=== PATIENT | female | born 2000 | race Caucasian/White ===

== ENCOUNTER 2024-02-21 12:42 | Observation (INO) | payer BC, SELFPAY ==
[2024-02-21 13:00] VITALS: BMI 26.6
[2024-02-21 15:13] LABS: Add Urine Microscopic? YES; Appearance Urine Clear (Clear); Bacteria Urine None Seen /hpf; Bilirubin Urine Negative (Negative); Blood Urine 3+ (Negative); Color Urine Yellow (Yellow); Glucose Urine UA Negative (Negative); Ketones Urine Negative (Negative); Leukocyte Esterase Ur Negative LEU/UL (Negative); Nitrate Urine Negative (Negative); Non Pathogenic Casts 0-2; Protein Urine Negative (Negative); RBC Urine 21-50 /hpf (0-2); Specific Grav Ur 1.011 (1.001-1.035); Squamous Epithelial Cell Urine None Seen /hpf (Few); Urobilinogen Urine 0.2 mg/dL (<2.0); WBC Urine 0-5 /hpf (0-3); pH Urine 6.5 (5.0-9.0)
[2024-02-21 18:53] LABS: OBXCEM ROM Plus Negative (Negative)
--- NOTE | 2024-02-22 18:09 | P.PNOB_ITS ---
OB - Triage/Final Diagnosis Visit Information Date of evaluation: 02/21/24 Reason for evaluation: threatened labor Comments/Additional reasons for admission: I have assessed the risk for this patient, Jazmni Mills, and determined that she would benefit from observation care. Evaluation Laboratory results: Laboratory Tests 02/21/24 02/21/24 13:30 14:49 Urine Color Yellow Urine Appearance Clear Urine pH 6.5 Ur Specific [place] 1.011 Urine Protein Negative Urine Glucose (UA) Negative Urine Ketones Negative Ur Blood (Man) 3+ H Urine Nitrate Negative Urine Bilirubin Negative Urine Urobilinogen 0.2 Ur Leukocyte Esterase Negative Urine RBC 21-50 H Urine WBC 0-5 Ur Squamous Epith Cells None seen Urine Bacteria None seen Urine Casts 0-2 Membranes Rupture Rom plus negative
== END 2024-02-21 15:48 | disposition home or self-care (01) ==
PROVIDERS: Advanced Practice Midwife; Admitting Provider Obstetrics & Gynecology; Visit Provider Obstetrics & Gynecology
DX: O47.03 False labor before 37 completed weeks of gestation, third trimester (principal); Z3A.33 33 weeks gestation of pregnancy
CPT/HCPCS: 81001; 84112; 87086; G0378; G0379

== ENCOUNTER 2024-03-22 16:00 | Outpatient (RCR) | payer BC, SELFPAY ==
--- NOTE | ~2024-03-22 | US_ITS ---
EXAMINATION: US OB BPP wo non-stress DATE: 03/22/2024 18:11 TERRAZZO FINISHER INDICATION: Variable decelerations TECHNIQUE: Real-time transabdominal obstetric ultrasound. FINDINGS: 1 para 0 There is a single intrauterine gestation in vertex presentation. The placenta is posterior without p lacenta previa. cardiac activity and movement is noted with a heart rate of 122 beats per minute. Biophysical profile: breathin of 2 movement: 2 of 2 tone: 2 of 2 Amniotic fluid pocket: 2 of 2 Total score: 8 of 8 Deepest vertical pocket measures 2.5 cm IMPRESSION: 1. Single intrauterine gestation in vertex presentation. 2: Total biophysical profile score of 8 out of 8. Reviewed, dictated and finalized at location A. AZZO FINISHER
[2024-03-22 18:04] VITALS: BP 117/68; PULSE 85
== END 2024-05-29 17:19 | disposition home or self-care (01) ==
LOC: ANHOBOP 16:00
PROVIDERS: PCP Family Medicine; Visit Provider Advanced Practice Midwife
DX: O36.8310 Maternal care for abnormalities of the fetal heart rate or rhythm, first trimester, not applicable or unspecified (principal)
CPT/HCPCS: 59025; 76819

== ENCOUNTER 2024-04-08 04:56 | Inpatient (IN) | payer BC, SELFPAY ==
[2024-04-08] VITALS (208 sets, daily range): BP systolic 92–150; BP diastolic 45–106; PULSE 55–199; TEMP 36.1–36.6; O2SAT 81–100; BMI 27.3
--- OUTSIDE RECORDS SUMMARY | 2024-04-08 05:01 | XMS_ITS | Encounter Summary ---
Author Organization [facility] Address [facility] [place] [address] Care Team Providers Care Windows Laptop Technician Name Role Phone Suraj Chirinos MD Primary Care Provider + [phone] Suraj Chirinos MD Primary Care Provider + [phone] Suraj Chirinos MD Unavailable [phone] Encounter Details Date Type Department Care Team (Late st Contact Info) Description 12/10/2016 [place] [address] , Generic Conversion, Social History Tobacco Use Types Packs/Day Years Used Date Smoking Tobacco: Never Assessed Comments Unknown Sex and Gender Information Value Date Recorded Sex Assigned at Not on file Legal Sex Female 7:43 PM CDT Gender Identity Not on file Sexual Orientation Not on file documented as of this encounter Plan of Treatment Not on file documented as of this encounter Visit Diagnoses Not on filedocumented in this encounter Care Teams Windows Laptop Technician Relationship Specialty Start Date End Date Suraj Chirinos MD [address] [place] [address] PCP - General 09/12/14 04/05/18 Suraj Chirinos MD [address] [facility] [address] [place] [address] PCP - General FAMILY PRACTICE 04/06/18 Suraj Chirinos MD [address] [facility] [address] [place] [address] 04/06/18 documented as of this encounter
--- OUTSIDE RECORDS SUMMARY | 2024-04-08 05:01 | XMS_ITS | Referral Summary ---
Author Organization [facility] Address [address] [place] [address] Care Team Providers Care Fabric Awning Repairer Name Role Phone Suraj Chirinos MD Primary Care Provider [phone] Link Nunez DO Unavailable [phone] Allergies Active Allergy Reactions Criticality Noted Date Comments Apple Shortness of breath High 01/22/2018 Apple Extract Swelling Medium 12/09/2016 Medications norethindrone-et hin estradiol (ORTHO-NOVUM 1-35 TAB,NORTREL 1-35 TAB) 1-35 mg-mcg per tablet Take 1 tablet by mouth daily. Active ibuprofen (ADVIL,MOTRIN) 400 mg tablet Take 1 tablet (400 mg total) by mouth every 6 (six) hours as needed for pain or fever. 40 tablet 8 Active diphenhydrAMINE (BENADRYL) 12.5 mg chewable tablet Take 12.5 mg by mouth every 6 (six) hours as needed for allergies. Active inhaler,assist devices,access (MOUTHPIECE) device Active valACYclovir (VALTREX) 1 gram tablet Take 2 grams twice a day when you feel tingling or burning sensation and are concerned for herpes infection 32 tablet 9 Active hydrocortisone 2.5 % ointmentIndicati ons:Atopic dermatitis, unspecified type Apply to less severe areas of eczema up to twice a day, avoid face, groin 453.6 g 2 9 Active Active Problems Problem Noted Date Diagnosed Date Ecchymosis 02/10/2022 Acute viral conjunctivitis of both eyes 01/27/20 18 Assessment & Plan (02/09/2018 10:33 AM PLATEN PRESS OPERATOR APPRENTICE): Resolved Assessment & Plan (01/26/2018 12:24 PM PLATEN PRESS OPERATOR APPRENTICE): Assessment: Patient presented with conjunctivitis and 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 No corneal or retinal involvement per optho and conjunctivitis resolving with pain 2/10 in bilateral eyes. Plan: -Artificial tears PRN eye discomfort -Ophthalmology follow up 02/09/[address] Swann Other constipation 01/25/2018 Assessment & Plan (01/26/2018 12:29 PM PLATEN PRESS OPERATOR APPRENTICE): Assessment: History of constipation that worsened during inpatient stay with additional use of pain medications. Abdomen soft and nontender still with complaints of hard stools Plan: -Discharge home with Miralax daily as needed Assessment & Plan (01/25/2018 9:58 PM PLATEN PRESS OPERATOR APPRENTICE): No stool since 01/20 and worsened by narcotics given in hospital Plan: Continue Miralax BID Can give Senna if needed for stooling in addition to Miralax Acute pain 01/24/2018 Assessment & Plan (01/26/2018 1:16 PM PLATEN PRESS OPERATOR APPRENTICE): Assessment: Patient experiencing acute pain with episode of eczema herpeticuma. Over the last 24 hours pain has been well managed with rash resolving. She reports 4/10 pain this morning but was able to sleep well throughout the night with increased dose of gabapentin. Plan: - Ibuprofen PRN - Scheduled gabapentin 300 mg morning and afternoon with 600 mg in the evening (will give wean for home on discharge to include: 2 weeks of 300mg BID with 600mg nightly, then 3 days of 300mg TID, then 3 days of 300mg BID, then 3 days of 300mg daily until finished) Assessment & Plan (01/25/2018 9:56 PM PLATEN PRESS OPERATOR APPRENTICE): Over the last 24 hours pain has not been well managed. She continues to report 6/10 pain this morning and difficulty sleeping due to the pain. Pain is described as burning. Oxycodone not helpful. Plan: - Scheduled ibuprofen 600 mg Q8 hours - Scheduled gabapentin 300 mg morning and afternoon - Increase scheduled gabapentin to 600 mg at bedtime - Discontinue oxycodone - Artificial tears PRN eye discomfort Assessment & Plan (01/24/2018 11:39 AM PLATEN PRESS OPERATOR APPRENTICE): Assessment: 17 yo female with eczema herpeticum to face and chest. On presentation, she reported 8/10 pain. Over the last 24 hours pain has gradually improved and on exam this morning she reports 4/10 pain. Plan: - Scheduled ibuprofen 600 mg Q8 hours - Scheduled gabapentin 300 mg TID - Oxycodone 5 mg Q4H PRN - Morphine PRN if oxy not sufficient - Artificial tears PRN eye discomfort - Miralax BID Eczema herpeticum 01/23/2018 Assessment & Plan (02/09/2018 10:34 AM PLATEN PRESS OPERATOR APPRENTICE): F/u with ophthalmology for routine refraction locally with contact lens provider. F/u here PRN. Continue Valtrex per MD team Assessment & Plan (01/26/2018 1:15 PM PLATEN PRESS OPERATOR APPRENTICE): Assessment: Matt is a 17-year-old female with a history of eczema who presents with eczema herpeticum to face and chest. No new lesions noted and overall improving. Facial lesion cultures 01/23 + strep dysgalactiae and + MSSA however no clinical signs of bacterial crusting. Will discharge home with topical antibiotic and reviewed signs and symptoms of worsening infection with mother and patient. Plan: -Discharge home today -PO valacyclovir 1000g (to be continued until 02/01) to complete treatment course -PO valacyclovir 500mg BID x30 days for suppression dosing (02/02-03/04) -Discussed stopping triamcinolone at discharge and using only during acute attacks -Hydrocortisone 2.5% for routine therapy -Vaseline TID to face and Mupirocin TID to eroded areas, as tolerated -Derm follow up in 30 days Assessment & Plan (01/25/2018 9:59 PM PLATEN PRESS OPERATOR APPRENTICE): Matt is a 17-year-old female with a history of eczema who presents with eczema herpeticum to face and chest. Rash is erythematous with lesions in various stages of resolution. No new lesions noted and overall improving. Plan: -SL PIV -IV Acylovir (01/23-01/25), start PO valacyclovir 1000g (to be continued until 02/01) -Triamcinolone BID to neck and arms -Vaseline TID to face -Mupirocin TID to eroded areas, as tolerated -reg diet -derm following and recommending therapies -following skin cultures pending Assessment & Plan (01/24/2018 11:40 AM PLATEN PRESS OPERATOR APPRENTICE): Assessment: Matt is a 17-year-old female with a history of eczema who presents with a rash to the face and chest. Rash is erythematous with lesions in various stages of resolution causing burning to her face and eyes. No new lesions noted. HSV culture from 01/23 was positive. Clindamycin was discontinued but will continue to follow bacterial culture. Optho consulted yesterday and is not concerned for corneal involvement. Plan: -MIVF -IV Acylovir (01/22- -Triamcinolone BID to neck and arms -Vaseline TID to face -reg diet -derm following, appreciate recommendations for IV therapy and total length of course [ ] ID consult regarding infection control as patient lives with 2 week old nephew [ ] f/u skin cultures Assessment & Plan (01/23/2018 2:15 AM PLATEN PRESS OPERATOR APPRENTICE): Matt is a 17-year-old female with a history of eczema who presents with a rash to the face. Rash is erythematous with pustules causing burning to her face and eyes. DDX Impetigo, eczema herpeticum, less likely shingles as it is not dermatomal. She was given a dose of IV acylovir, IV clindamycin, dose of oral gabapentin. Due to the pain and burning; she was given a dose of morphine and oxycodone. She was will be transferred to the floor for IV antibiotics and pain control. Plan: -IV Acylovir (01/22- -IV Clindamyicn (01/22- -reg diet -derm consult 01/23 -tylenol/ibuprofen prn -oxycodone prn Sacroiliac joint pain 02/09/2017 Atopic dermatitis 11/22/2013 Comments Yes Immunizations Immunization Administration Dates Next Due DTaP 09/12/2006, 2,06/06/2001,04/04/2001 ,02/01/2001 HPV, Quadrivalent 08/16/2013,11/07/2012,08/24/19 13 Hep B / HiB 06/06/2001 Hep B, Adolescent or Pediatric 01/02/2001,2000 HiB 12/12/2001,04/04/2001 Hib (PRP-T) 02/01/2001 IPV 09/12/2006,06/06/2001,04/04/2001 ,02/01/2001 MMR 09/12/2006,12/12/2001 Meningococcal Conjugate (Menveo) 08/16/2013 Pneumococcal Conjugate PCV 13 06/01/2001, 001 Tdap 08/23/2012 Varicella 08/23/2012,08/30/2002 Social History Tobacco Use Types Packs/Day Years Used Date Smoking Tobacco: Passive Smo ke Exposure - Never Smoker Smokeless Tobacco: Never Alcohol Use Standard Drinks/Week Comments Never 0 (1 standard drink = 0.6 oz pur e alcohol) AUDIT-C Answer Date Recorded Frequency of Alcohol Consumption Never 12/20/2018 Average Number of Drinks Not on file 019 Frequency of Binge Drinking Not on file 12/07 Comments Yes Sex and Gender Information Value Date Recorded Sex Assigned at Not on file Legal Sex Female 12:33 PM PLATEN PRESS OPERATOR APPRENTICE Gender Identity Not on file Sexual Orientation Not on file Last Filed Vital Signs Vital Sign Reading Time Taken Comments Blood Pressure 121/80 07/31/2023 4:39 PM CDT Pulse 76 07/31/2023 4:39 PM CDT Temperature 37.3 C (99.1 F) 07/31/2023 11:03 AM CDT Respiratory Rate 16 07/31/2023 4:39 PM CDT Oxygen Saturation 100% 07/31/2023 4:39 PM CDT Inhaled Oxygen Concentration - - Weight 59.2 kg (130 lb 8.2 oz) 07/31/2023 11:03 AM CDT Height 157.5 cm (5' 2 ) 07/31/2023 11:03 AM CDT Body Mass Index 23.87 07/31/2023 11:03 AM CDT Plan of Treatment Not on file Insurance [employer] [facility] [employer] [facility] Advance Directives For more information, please contact: [phone] * Full Code (Latest Code Status on File) Date Activated Date Inactivated Comments 01/23/2018 3:47 AM 01/26/2018 4:48 PM Care Teams Fabric Awning Repairer Relationship Specialty Start Date End Date Suraj Chirinos MD [address] [facility] [address] [place] [address] PCP - General 08/01/17 Link Nunez DO [address] [place] [address] MEDICAL ONCOLOGY, [facility] [address] [place] [address] Medical Oncologist/Armature Winder Repairer Hematology and Oncology 02/10/22
--- OUTSIDE RECORDS SUMMARY | 2024-04-08 05:01 | XMS_ITS | Continuity of Care Document ---
Author Name [facility] Organization [facility] Care Team Providers Care School Psychological Examiner Name Role Phone [facility] Unavailable Unavailable Allergies, Adverse Reactions, Alerts Combined list of allergies from Department of Defense and Veterans Affairs facilities. It does not include entries that were removed or entered in error. Substance Category Reaction Severity Reaction type Status Date Reported Comments Source No Known Allergies Drug allergy (disorder) active 04/01/2020 Medical Group Immunizations Combined list of available immunizations from the Department of Defense and Veterans Affairs facilities. Immunization Series Date Given Administered By Site Reaction Lot Number CVX Code Drug Supervisor Tan Room Status Comments Source COVID Vaccine Pfizer 2020 [id number] PFIZER complet ed COVID Vaccine Pfizer 09/11/20 Given Ambulat ory Pharmac y hepatitis A-hepatitis B vaccine 2020 [id number] GlaxoSmithKli ne complet ed hepatitis A-hepatit is B vaccine 04/27/20 Given Ambulat ory Pharmac y influenza, injectable, quadrivalent 2020 [id number] 158 Seqirus complet ed influenza , injectabl e, quadrival ent 03/19/20 Given Ambulat ory Pharmac y meningococcal A,C,Y,W-135 (MCV4P) 2020 [id number] sanofi pasteur complet ed meningoco ccal A,C,Y,W-1 35 (MCV4P) 03/19/20 Given Ambulat ory Pharmac y tetanus, diphtheria, acellular pertu is 2020 [id number] 115 GlaxoSmithKli ne complet ed tetanus, diphtheri a, acellular pertussis 03/19/20 Given Ambulat ory Pharmac y hepatitis A-hepatitis B vaccine 2020 [id number] 104 GlaxoSmithKli ne complet ed hepatitis A-hepatit is B vaccine 03/19/20 Given Ambulat ory Pharmac y adenovirus vaccine, live 2020 [id number] 143 Teva Pharmaceutica ls complet ed adenoviru s vaccine, live 03/19/20 Given Ambulat ory Pharmac y poliovirus vaccine, inactivated 2020 [id number] sanofi pasteur complet ed polioviru s vaccine, inactivat ed 03/19/20 Given Ambulat ory Pharmac y measles, mumps and rubella virus vaccine 1 2020 UNK 03 Unknown (UNK) Not Given measles, mumps and rubella virus vaccine DoD varicella virus vaccine 1 2020 UNK 21 Unknown (UNK) Not Given varicella virus vaccine DoD Encounters Combined list of: 1) Encounters from Department of Veterans Affairs facilities going backup to the last 18 months, not all VA inpatient encounters are included; 2) Encounters from the Department of Defense facilities going backup to 280 months. Location Location Details Encounter Type Encounter Number Reason For Visit Attending Provider ADM Date DC Date Status Disposition Source [facility] Group(IEP Optometry ) OUTPATIENT [id number] MICKIMITZI CHERELLEGODFREY Pereyra 03/17 Released w/o Limitations [employer](I EP Optomet ry) [facility](TMC Ambulator y) OUTPATIENT [id number] CARIE Banks 04/01 Released w/o Limitations [employer](T MC Ambulat ory) [facility] [facility](IEP Primary Care) OUTPATIENT [id number] Notes Entered by: Nicki IRAHETA 08 Apr 2020 1114 ------- ------- ------- ------- -- IET IMM REINA IRAHETA 04/08 Released w/o Limitations [facility] [facility](I EP Primary Care) [facility](IEP Primary Care) OUTPATIENT [id number] IET IMM DAVID ASCENCIO 05/07 Released w/o Limitations [employer] [facility](I EP Primary Care) [employer](BAS [place] Athe[employer] Perform) OUTPATIENT [id number] Notes Entered by: STEVEN HEARD 07 May 2020 1036 ------- ------- ------- ------- -- STEVEN Cortez 05/07 Released w/o Limitations [employer](B [place] Athe[employer] e Perform ) Procedures Combined list of: 1) Procedures from Department of Veterans Affairs facilities going back up to thelast 18 months, not all VA non-surgical procedures are included; 2) All procedures from the Department of Defense facilities. Procedure Procedure Type Code Date Perfomer Comments Rod e No data available for this section Ambulato ry Pharmacy REMOVAL OF DEVITALIZED TISS FRM WOUND(S),NON-SELECT DEBRIDEMENT,WO ANES (EG,[id number] DRESS,ENZYMATIC,ABR ,LARVAL THER),INCL TOPICAL KAVITA(S),WOUND ASSESS,& INSTRUCTION(S) FOR ONGOING CARE,PER SESS [facility] HEPATITIS A AND HEPATITIS B VACCINE (HEPA-HEPB), ADULT DOSAGE, FOR INTRAMUSCULAR USE [facility] INFLUENZA VIRUS VACCINE, QUADRIVALENT (IIV4), SPLIT VIRUS, PRESERVATIVE FREE, 0.5 ML DOSAGE, FOR INTRAMUSCULAR USE [facility] THERAPEUTIC, PROPHYLACTIC, OR DIAGNOSTIC INJECTION (SPECIFY SUBSTANCE OR DRUG); SUBCUTANEOUS OR INTRAMUSCULAR [facility] DETERMINATION OF REFRACTIVE STATE [facility] EAR MOLD/INSERT, NOT DISPOSABLE, ANY TYPE [facility] Ophthalmological New Patient Start Intermediate Level Care Ophthalmological New Patient Start Intermediate Level Care [address] [facility] Spectacles Services Fitting Monofocal Except For Aphakia Spectacles Services Fitting Monofocal Except For Aphakia [address] [facility] Determination Of Refractive State Determination Of Refractive State [address] [facility] Physician Supervised Injection Intramuscular Physician Supervised Injection Intramuscular 69314 CARIE DICK Please inject 8 mg of Decadron IM now. [facility] Administration By Injection, One Vaccine Immunization Administration By Injection, One Vaccine [address]229 [facility] Immunization Administration By Injection, Each Additional Vaccine Immunization Administration By Injection, Each Additional Vaccine 11908 [facility] Hepatitis A And Hepatitis B (Intramuscular Use) Adult Dosage Hepatitis A And Hepatitis B (Intramuscular Use) Adult Dosage 43504 [facility] Vaccines Viral Polio, Inactivated Vaccines Viral Polio, Inactivated 67278 [facility] Meningococcal Conjugate Vaccine Quadrivalent Serogroups A, C, Y, W-135 Meningococcal Conjugate Vaccine Quadrivalent Serogroups A, C, Y, W-135 26899 [facility] Tdap Vaccine Tdap Vaccine 18024 [facility] Immunization Admin Intranasal / Oral Each Additional Vaccine Immunization Admin Intranasal / Oral Each Additional Vaccine 20234 [facility] Vaccines Adenovirus Type 4 Live, For Oral Use Vaccines Adenovirus Type 4 Live, For Oral Use 50633 [facility] Vaccines Adenovirus Type 7 Live, For Oral Use Vaccines Adenovirus Type 7 Live, For Oral Use 94290 [facility] Influenza Split Virus Vaccine IM Preserv Free 0.5mL Dosage Quadrivalent Influenza Split Virus Vaccine IM Preserv Free 0.5mL Dosage Quadrivalent 24338 [facility] Athletic Training Evaluation Low Complexity Athletic Training Evaluation Low Complexity 24613 STEVEN HEARD [facility] Wound Care Debridement Non-Selective Wound Care Debridement Non-Selective 36486 STEVEN HEARD [facility] Social History Combined list of available smoking, tobacco, and other social history from Department of Defense and Veterans Affairs facilities. Social History Type Response Date Comment Sour e This section is an empty social history section. [facility] Assessment and Plan Combined list of future care activities from Department of Defense and Veterans Affairs facilities (e.g., assessment and plan notes, appointments, orders, and referrals). Additional future care activities may be listed in the Plan of Care section. Result Assessment and Plan Date Source Assessment and Plan No data available for this section 04/08/2024 Ambulatory Pharmacy Functional Status Combined list of recent functional and cognitive assessments recorded at Department of Defense and [facility] Affairs ([place] Functional [place] Measurement (FIM) Scale: 1 = Total Assistance (Subject = 0% +), 2 = Maximal Assistance (Subject = 25% +), 3 = Moderate Assistance (Subject = 50% +), 4 = Minimal Assistance (Subject = 75% +), 5 = Supervision, 6 = Modified [place] (Device), 7 = Complete [place] (Timely, Safely). Assessment Date/Time Source Assessment Type Assessment Skill Assessment Score Assessment Details No data available for this section
--- OUTSIDE RECORDS SUMMARY | 2024-04-08 05:01 | XMS_ITS | Clinical Summary ---
Author Organization [facility] Address [address] [place] [address] Care Team Providers Care Fruit Receiver Name Role Phone Unavailable Primary Care Provider Unavailabl e Social History Tobacco Use Types Packs/Day Years Used Date Smoking Tobacco: Never Assessed Comments Unknown Sex and Gender Information Value Date Recorded Sex Assigned at Not on file Legal Sex Female 1:59 PM CUSTOMER EXPERIENCE ASSOCIATE Gender Identity Not on file Sexual Orientation Not on file Plan of Treatment Health Maintenance Due Date Last Done Comments Hepatitis C Virus (HCV) Screening 2000 Meningococcal B Immunization (2 of 2 - Trumenba SCDM 2-dose series) 10/13/2019 04/12/2019 Pap Smear 2021 Influenza Immunization (#1) 2023 12/12/2018 SARS-COV-2 Immunization ( season) 2023 Respiratory Syncytial Virus (RSV) Immunization (Adult) (1 - 1-dose 75+ series) 11/29/2075 Pneumococcal Immunization Combined Aged Out 06/01/2001, 02/01/2001 No longer eligibl e based on patient's age to complete this topic Hepatitis B Immunization Completed 002, 01/02/2001, 2000 DTaP/Tdap/Td Immunization Discontinued 2012, 09/12/2006, 12/12/2001, Additional history exists TdaP Immunization Completed 08/23/2012 Human Papillomavirus (HPV) Immunization Completed 08/16/2013, 11/07/2012, 08/23/2012 Meningococcal Immunization (ACWY) Aged Out 08/16/2013 No longer eligible based on patient's age to complete this topic Rotavirus Immunization Aged Out No lo nger eligible based on patient's age to complete this topic Insurance [employer] on file
--- OUTSIDE RECORDS SUMMARY | 2024-04-08 05:01 | XMS_ITS | Continuity of Care Document ---
Author Organization [facility] Address [address] [place] [address] Phone Care Team Providers Care Resource Manager Name Role Phone Win Bennett MD Unavailable Unavailable Allergies, Adverse Reactions, Alerts Substance Reaction Status Criticality No Known Allergies Active No Inform ation Medications Medication Instructions Dosage Effective Dates (start - stop) Status Comments cetirizine 10 mg tablet take 1 tablet by oral route every evening 10 MG - Active montelukast 10 mg tablet take 1 tablet by oral route every day in the evening 10 MG - Active triamcinolone acetonide 0.1 % topical cream 1 applic by Topical route 2 times per day - Active ProAir HFA 90 mcg/actuation aerosol inhaler inhale 2 puffs by Inhalation route every 4 - 6 hours 2 puffs - No Longer Active Elidel 1 % topical cream apply by topical route 2 times every day a thin layer to the affected area(s) ; rub in gently and completely 0.00 - No Longer Active cetirizine 10 mg Tab take 1 tablet by oral route every day 10 MG - No Longer Active Aerochamber - No Longer Active Prilosec 20 mg capsule,delayed release 1 capsule,delayed release(DR/EC) by Oral route every day ;swallow whole (do not chew/crush/cut) OR open capsule, sprinkle contents over tablespoonful applesauce; swallow all immediately/do not chew pellets - No Longer Active ketotifen fumarate 0.025 % Eye Drops instill 1 drop by ophthalmic route 2 times every day into affected eye(s) 1.00 drop - No Longer Active Advance Directives Directive Yes / No Effective Date File Name No Information Encounters Encounter Description Practice Location Reason(s) For Visit Diagnoses Date Provider Providers Copied on Encounter [facility], [address], [place], [place], [id number] , tel:[phone] [facility] Seasonal allergic rhinitis due to pollenSeasonal allergic rhinitis due to fungal sporesHistory of oral allergy syndromeOther atopic dermatitisHouse dust mite allergy 8 Donald Walden. [address] [place] [address], [id number], . tel:[phone] Referring Provider: Suraj Chirinos, [address], [place], [address]. tel:[phone] [facility], [address], [place], [place], [id number] , tel:[phone] [facility] [place] EXTRINSIC ASTHMA, UNSPECIFIEDAller gic rhinitis due to other allergenOther atopic dermatitis and related conditionsOther chronic allergic conjunctivitis 5 Fahad Melton. [address] [place] [address], [id number], . tel:[phone] Referring Provider: Win Bennett, [address] [place] [address], [address] . tel:[phone] [facility], [id number] [place] [address], [id number] , [phone] [facility] No Information 4 Donald Walden. [address] [place] [address], [id number], [place]. tel:[phone] [facility], [address], [place], [place], [id number] , [place] tel: [phone] [facility] EXTRINSIC ASTHMA, UNSPECIFIEDAller gic rhinitis due to other allergenOther atopic dermatitis and related conditions 3 Donald Walden. [address] [facility], [address], [id number], . tel:[phone] Referring Provider: Suraj Chirinos, [address], [place], [address]. tel:[phone] [facility], [address], [place], [place], [id number] , [place] tel: [phone] [facility] [place] No Information 2 Iam Mi. [address] [facility] [address], [place], [place], [id number]. [phone] Referring Provider: Win Bennett, [address] [place] [address], [place], [address] . tel:[phone] [facility], [address], [place], [place], [id number] , [place] tel: [phone] [facility] Extrinsic asthma, unspecifiedALLER GIC RHINITIS NECContact dermatitis and other eczema, due to unspec 2 Donald Walden. [address], [id number], . tel:[phone] [facility], [address], [place], [place], [id number] , tel: [phone] [facility] Allergic rhinitis due to other allergenOther chronic allergic conjunctivitisOt her atopic dermatitis and related conditions 1 Donald Walden. [address] [place] [address], [id number], [place]. tel:[phone] Family History Family Member Type Diagnosis Age At Onset Father Problem (finding) Allergies Sister Problem (finding) asthma Sister Problem (finding) Allergies Payers Payer name Insurance type Covered republican ID Authoriza tion(s) BS [place] OUT OF STATE [id number] Social History Type Description Quantity Date Captured Comments Alcohol Use Details Unknown Caffeine Use Details Unknown Tobacco Use Status No Information Smoking Status Never smoker Sex Female Vital Signs Date / Time: Height Weight BMI Pulse Rate Blood Pressure Temperature Respiratory Rate Body Surface Area Head Circumference Head Circ. Percentile Wt./Saúl. Percentile BMI percentile Pulse Ox Inhaled Ox 8:39 AM 63.00 in 58.060 kg (128.00 lbs) 22.6 7 kg/m eter (2) 81 /min 101/75 mm[Hg] 71 Chief Complaint And Reason For Visit No Information Reason For Referral Reason For Referral No Information History Of Present Illness Encounter Date Complaint History Of Prese nt Illness No Information Functional Status Date Functional Assessmen t No Information Instructions Date Instruction Additional Infor mation No Information Assessments Type Assessment Date No Information Patient Care Teams Name Effective Dates (start - stop) Status Members No Information
--- OUTSIDE RECORDS SUMMARY | 2024-04-08 05:01 | XMS_ITS | Encounter Summary ---
Author Organization [facility] Address [address] [place] [address] Phone Care Team Providers Care B2B Outside Sales Representative Name Role Phone Suraj Chirinos MD Primary Care Provider [phone] Link Nunez DO Unavailable [phone] Encounter Details Date Type Department Care Team (Late st Contact Info) Description 01/23/2018 Ophth Exam [facility] [address] [place] [address] [address] [place] [id number] Chel Mack MD PhD [address] [place] [address] Social History Tobacco Use Types Packs/Day Years Used Date Smoking Tobacco: Passive Smo ke Exposure - Never Smoker Smokeless Tobacco: Never Comments Unknown Sex and Gender Information Value Date Recorded Sex Assigned at Not on file Legal Sex Female 12:33 PM MEDICAL [facility]IATION DOSIMETRIST Gender Identity Not on file Sexual Orientation Not on file documented as of this encounter Plan of Treatment Not on file documented as of this encounter Visit Diagnoses Not on filedocumented in this encounter Additional Health Concerns Infection Onset Date Last Indicated Resolved Time COVID: Suspected 11/30/2021 11/30/2021 12/01/2021 3:05 AM CDT COVID: Suspected 11/30/2021 11/30/2021 12/01/2021 7:04 AM CDT documented as of this encounter Eye Exam Visual Acuity (near card) Right eye Left eye Near sc 20/20 20/20 Tonometry (Tonopen, 3:59 PM) Right eye Left eye Pressure 19 15 Squeezing a little Pupils Pupils Dark Light Shape React APD Right eye PERRL 5 3 Round Brisk None Left eye PERRL 5 3 Round Brisk None Visual [place] Right eye Left eye Full Full Extraocular Movement Right eye Left eye Full, Ortho Full, Ortho Neuro/Psych Oriented x3: Yes Mood/Affect: Normal Dilation Both eyes: 1.0% Mydriacyl, 2 .5% Phenylephrine @ 3:50 PM External Exam Right eye Left eye External small raised lesions worse over bridge of nose, chin, and upper lip, also with scattered lesions of upper and lower lids OU Slit Lamp Exam Right eye Left eye Lids/Lashes as above as above Conjunctiva/Sclera tr injection 1+ injection, ?tr follicles Cornea no stain, no obvious KP or infiltrates no stain, no obvious KP or infiltrates Anterior Chamber Formed, clear view o f iris, no hypopyon or hyphema Formed, clear view of iris, no hypopyon or hyphema Iris Round and reactive Round and jakub ctive Lens Clear Clear Vitreous Normal Normal Fundus Exam Right eye Left eye Disc Normal Normal C/D Ratio 0.2 0.2 Macula Normal Normal Vessels Normal Normal Periphery no areas of necrosis or hemorrha ge no areas of necrosis or hemorrhage Care Teams B2B Outside Sales Representative Relationship Specialty Start Date End Date Suraj Chirinos MD [address] [facility] [address] [place] [address] PCP - General 08/01/17 Link Nunez DO [address] [place] [address] MEDICAL ONCOLOGY, [facility] [address] [place] [address] Medical Oncologist/Construction Sales Manager Hematology and Oncology 02/10/22 documented as of this encounter
--- OUTSIDE RECORDS SUMMARY | 2024-04-08 05:01 | XMS_ITS | Data Portability ---
Author Organization [facility] Address [address] [place] [address] [place] [address] Care Team Providers Care Proofer Black And White Name Role Phone MANISH MILAN Primary Care Provider Assessment Encounter Date Assessment Date Assessment LastModified by Organization Details LastModified Time 03/22/2024 03/22/2024 Patient is __37_weeks . Discussed plan. Not available 03/22/2024 16:26:55 03/27/2024 03/27/2024 Patient is __38_weeks . Discussed plan. [email or web address] Not available 03/27/2024 17:19:00 04/05/2024 04/05/2024 Patient is _39__weeks . Discussed plan. Not available 04/05/2024 16:12:32 Plan of Treatment Reminders Order Date Submit Date Provider Last Modified By Organization Details Last Modified Time Details Appointments None record ed. Lab None record ed. Referral None record ed. Procedures None record ed. Surgeries None record ed. Imaging non-st ress test 025 04/05/19 25 [email or web address] [address], [address], [place], [address], 17:57:00 Medication Orders None record ed. Patient TargetsNo targets recorded. Patient InstructionsNo instructions recorded. Reason for Referral None Reported. Results Created Date Observation Date Name Description Value Unit Range Abnormal Flag Note LastModifiedBy Organization Detail LastModifiedTime 03/06/19 25 03/06/2024 CULTU RE: GROUP B STREP SCREE N, REFLE X SUSCE PTIBI LITY result report SEE RESULT S BELOW Test: Cultu re: Group B Strep , Refle x Susce ptibi lity ([facility]/ [facility] ) Speci men Sourc e: Vagin a/Rec giuseppe Speci men Type: Vagin al/Re ctal Speci men Date: 2024 1611 Resul t Date: 025 1410 Resul t Statu s: Final resul t Abnor mal: No Resul ting Lab: [facility] [address] [facility] [place] [address] Tel: CULTU RE ----- ----- ----- --- No Group B strep isola laila at 2 days (stephanie ctive broth enhan cemen t) Not Available [facility] (Lab) [address] [facility], [place], [address], 03/09/2024 15:13:52 03/22/19 25 03/22/2024 CMP(C OMPRE HENSI VE METAB OLIC PANEL ) sodium 134 mmol/ L 133-14 6 Not Available [facility] (Lab) [address] [place], [address], 03/24/2024 01:31:31 03/22/19 25 03/22/2024 CMP(C OMPRE HENSI VE METAB OLIC PANEL ) potassium 3.6 mmol/ L 3.5-5. 1 Not Available [facility] (Lab) [address] [place], [address], 03/24/2024 01:31:31 03/22/19 25 03/22/2024 CMP(C OMPRE HENSI VE METAB OLIC PANEL ) chloride 101 mmol/ L 98-107 Not Available [facility] (Lab) [address] [place], [address], 03/24/2024 01:31:31 03/22/19 25 03/22/2024 CMP(C OMPRE HENSI VE METAB OLIC PANEL ) carbon dioxide 26 mmol/ L 21-31 Not Available [facility] (Lab) [address] [facility], [place], [address], 03/24/2024 01:31:31 03/22/1903/22/2024 CMP(C OMPRE HENSI VE METAB OLIC PANEL ) anion gap 7 mmol/ L 4-13 Not Available [facility] (Lab) [address] [facility], [place], [address], 03/24/2024 01:31:31 03/22/19 25 03/22/2024 CMP(C OMPRE HENSI VE METAB OLIC PANEL ) blood urea nitrogen 8 mg/dL 7-25 Not Available [facility] (Lab) [address] [facility] [address] [facility], [place], [address], 03/24/2024 01:31:31 03/22/19 25 03/22/2024 CMP(C OMPRE HENSI VE METAB OLIC PANEL ) creatinine 0.65 mg/dL 0.60-1 .30 Not Available [facility] (Lab) [address] [facility] [facility], [place], [address], 03/24/2024 01:31:31 03/22/1903/22/2024 CMP(C OMPRE HENSI VE METAB OLIC PANEL ) egfrcr (CKD-epi 2020) >90 mL/mi n/1.7 3_m2 >=60 Not Available [facility] (Lab) [address] [facility] [facility], [place], [address], 03/24/2024 01:31:31 03/22/1903/22/2024 CMP(C OMPRE HENSI VE METAB OLIC PANEL ) calcium 8.9 mg/dL 8.3-10 .5 Not Available [facility] (Lab) [address] [facility] [address] [facility], [place], [address], 03/24/2024 01:31:31 03/22/19 25 03/22/2024 CMP(C OMPRE HENSI VE METAB OLIC PANEL ) glucose 87 mg/dL 70-100 Not Available [facility] (Lab) [address] [facility] [place], [address], 03/24/2024 01:31:31 03/22/19 25 03/22/2024 CMP(C OMPRE HENSI VE METAB OLIC PANEL ) protein, total 6.9 g/dL 6.4-8. 3 Not Available [facility] (Lab) [address] [facility] [facility], [place], [address], 03/24/2024 01:31:31 03/22/19 25 03/22/2024 CMP(C OMPRE HENSI VE METAB OLIC PANEL ) albumin 3.5 g/dL 3.5-5. 0 Not Available [facility] (Lab) [address] [facility] [facility], [place], [address], 03/24/2024 01:31:31 03/22/19 25 03/22/2024 CMP(C OMPRE HENSI VE METAB OLIC PANEL ) ALT 12 units /L 9-43 Not Available [facility] (Lab) [address] [facility] [address] [facility], [place], [address], 03/24/2024 01:31:31 03/22/1903/22/2024 CMP(C OMPRE HENSI VE METAB OLIC PANEL ) alkaline phosphatase 179 units /L 34-104 high Not Available [facility] (Lab) [address] [facility], [place], [address], 03/24/2024 01:31:31 03/22/19 25 03/22/2024 CMP(C OMPRE HENSI VE METAB OLIC PANEL ) AST 16 units /L 13-39 Not Available [facility] (Lab) [address] [facility], [place], [address], 03/24/2024 01:31:31 03/22/19 25 03/22/2024 CMP(C OMPRE HENSI VE METAB OLIC PANEL ) bilirubin, total 0.3 mg/dL 0.2-1. 2 Not Available [facility] (Lab) [address] [place], [address], 03/24/2024 01:31:31 03/22/1903/22/2024 URIC ACID uric acid 4.3 mg/dL 2.3-6. 6 Not Available [facility] (Lab) [address], [place], [address], 03/24/2024 01:31:32 03/22/1903/22/2024 BLOOD SMEAR EXAM, RBC MORPH OLOGY RBC morphology Review ed Not Available [facility] (Lab) [address], [place], [address], 03/24/2024 01:31:32 03/22/1903/22/2024 BLOOD SMEAR EXAM, RBC MORPH OLOGY platelet morphology Review ed Not Available [facility] (Lab) [address], [place], [address], 03/24/2024 01:31:32 03/22/1903/22/2024 CBC W/DIF F WBC 10.3 10'3/ uL 3.5-10 .5 Not Available [facility] (Lab) [address], [place], [address], 03/24/2024 01:31:32 03/22/1903/22/2024 CBC W/DIF F RBC 3.98 10'6/ uL (based on docume nted legal sex) 3.80-5 .20 Not Available [facility] (Lab) [address] , [place], [address], 03/24/2024 01:31:32 03/22/1903/22/2024 CBC W/DIF F HGB 11.5 g/dL (based on docume nted legal sex) 11.6-1 5.4 low Not Available [facility] (Lab) [address], [place], [address], 03/24/2024 01:31:32 03/22/1903/22/2024 CBC W/DIF F HCT 36.9 % (based on docume nted legal sex) 34.0-4 5.0 Not Available [facility] (Lab) [address] [facility], [place], [address], 03/24/2024 01:31:32 03/22/1903/22/2024 CBC W/DIF F MCV 92.7 fL 80.0-9 9.0 Not Available [facility] (Lab) [address] [facility] [address] [facility], [place], [address], 03/24/2024 01:31:32 03/22/1903/22/2024 CBC W/DIF F MCH 28.9 pg 27.0-3 4.0 Not Available [facility] (Lab) [address] [facility] [address] [facility], [place], [address], 03/24/2024 01:31:32 03/22/1903/22/2024 CBC W/DIF F MCHC 31.2 g/dL 32.0-3 5.5 low Not Available [facility] (Lab) [address] [facility] [facility], [place], [address], 03/24/2024 01:31:32 03/22/1903/22/2024 CBC W/DIF F RDW 13.9 % 11.0-1 5.0 Not Available [facility] (Lab) [address] [facility], [place], [address], 03/24/2024 01:31:32 03/22/1903/22/2024 CBC W/DIF F plt 326 10'3/ uL 150-40 0 Fibri n rojelio ds noted Not Available [facility] (Lab) [address], [place], [address], 03/24/2024 01:31:32 03/22/1903/22/2024 CBC W/DIF F MPV 11.0 fL 8.8-12 .1 Not Available [facility] (Lab) [address] [facility] [address] [facility], [place], [address], 03/24/2024 01:31:32 03/22/19 25 03/22/2024 CBC W/DIF F neutrophils 72.8 % 34.0-7 3.0 Not Available [facility] (Lab) [address] [place], [address], 03/24/2024 01:31:32 03/22/19 25 03/22/2024 CBC W/DIF F lymphocytes 16.4 % 15.0-5 0.0 Not Available [facility] (Lab) [address] [facility], [place], [address], 03/24/2024 01:31:32 03/22/19 25 03/22/2024 CBC W/DIF F monocytes 8.8 % 1.0-15 .0 Not Available [facility] (Lab) [address], [place], [address], 03/24/2024 01:31:32 03/22/19 25 03/22/2024 CBC W/DIF F eosinophils 0.8 % 0.0-8. 0 Not Available [facility] (Lab) [address], [place], [address], 03/24/2024 01:31:32 03/22/1903/22/2024 CBC W/DIF F basophils 0.2 % 0.0-2. 0 Not Available [facility] (Lab) [address] [place], [address], 03/24/2024 01:31:32 03/22/1903/22/2024 CBC W/DIF F immature granulocytes 1.0 % no define d refere nce range Immat ure Granu locyt es (IG) repre sents autom ated enume ratio n of Metam yeloc ytes, Myelo cytes and Promy elocy kirit when IG is < 5%. Blast s are not inclu ded in IG and repor laila separ ately if prese nt. Not Available [facility] (Lab) [address] [place], [address], 03/24/2024 01:31:32 03/22/19 25 03/22/2024 CBC W/DIF F absolute neutrophils 7.5 10'3/ uL 1.5-8. 0 Not Available [facility] (Lab) [address], [place], [address], 03/24/2024 01:31:32 03/22/19 25 03/22/2024 CBC W/DIF F absolute lymphocytes 1.7 10'3/ uL 1.0-4. 0 Not Available [facility] (Lab) [address] [facility], [place], [address], 03/24/2024 01:31:32 03/22/19 25 03/22/2024 CBC W/DIF F absolute monocytes 0.9 10'3/ uL 0.2-1. 0 Not Available [facility] (Lab) [address] [facility], [place], [address], 03/24/2024 01:31:32 03/22/19 25 03/22/2024 CBC W/DIF F absolute eosinophils 0.1 10'3/ uL 0.0-0. 6 Not Available [facility] (Lab) [address], [place], [address], 03/24/2024 01:31:32 03/22/19 25 03/22/2024 CBC W/DIF F absolute basophils 0.0 10'3/ uL 0.0-0. 3 Not Available [facility] (Lab) [address], [place], [address], 03/24/2024 01:31:32 03/22/19 25 03/22/2024 CBC W/DIF F absolute immature granulocytes 0.1 10'3/ uL 0.00-0 .10 2024 11:55 AM: P indic ates parti al resul ts on a panel have been relea sed. Addit ional resul ts will follo w. Refer ence range s for nonbi nary/ inter sex or unspe cifie d gende r patie nts have not been estab lishe d. Pleas e refer to the follo wing table for range s estab lishe d for cisge nder patie nts and evalu ate in the clini jerzy isak xt of the indiv idual patie nt: https :[email or web address] ayala book. nm.or g/gen derx 2024 11:55 AM: This resul t has been final verif ied. No addit ional or miles ed resul ts are expec laila. Not Available [facility] (Lab) [address], [place], [address], 03/24/2024 01:31:32 03/22/19 25 03/22/2024 PROTE IN/CR EATIN INE RATIO , URINE creatinine, urine 66.2 mg/dL R-No refer ence range estab lishe d for this assay Not Available [facility] (Lab) [address], [place], [address], 03/24/2024 01:31:33 03/22/19 25 03/22/2024 PROTE IN/CR EATIN INE RATIO , URINE protein, urine 11 mg/dL R-No refer ence range estab lishe d for this assay Not Available [facility] (Lab) [address], [place], [address], 03/24/2024 01:31:33 03/22/19 25 03/22/2024 PROTE IN/CR EATIN INE RATIO , URINE protein/crea tinine ratio, urine 0.17 . No Refer ence Range avail able for Rando m Urine s. A prote in to creat inine ratio of >=0.1 9 is a good predi ctor of signi fican t prote inuri a. A level of <0.14 can rule out signi fican t prote inuri a. Not Available [facility] (Lab) [address], [place], [address], 03/24/2024 01:31:33 03/22/19 25 03/22/2024 non-s tress test No observ ation record ed. [email or web address] [facility] [address], [place], [address], 03/22/2024 17:41:24 03/22/19 25 03/22/2024 non-s tress test No observ ation record ed. [email or web address] [facility] [address], [place], [address], 03/22/2024 17:43:11 03/22/19 25 03/22/2024 non-s tress test No observ ation record ed. [address] [facility] [address], [place], [address], 03/29/2024 13:54:51 03/22/19 25 03/22/2024 US, obste tric, bioph ysica l profi le No observ ation record ed. [address], [place], [address], 03/25/2024 11:03:27 04/05/19 25 04/05/2024 non-s tress test No observ ation record ed. [email or web address] [facility] [address], [place], [address], 04/05/2024 17:56:25 04/05/19 25 04/05/2024 non-s tress test No observ ation record ed. [email or web address] [facility] [address], [place], [address], 04/05/2024 18:19:37 Result Notes None recorded. Problems Name Problem SNOMED Code Status Onset Date Resolution Date Notes Provider Name and Address Organization Details Recorded Time Uses combined oral contrace ption 887704293 Completed 201703/03/2021 Encounte r for surveill ance of contrace ptive pills;Re corded Elsewher e: No Locat ion: [facility] S ource: EHR Coil Maker gildardo: N Practi ce ID: 0001 Micheal lable Time: 08:30:00 AM [facility] 17:55:57 Finding of pattern of menstrua l cycle 109818919 Completed 201603/03/2021 Irregula r interval between menstrua l bleeding ;Recorde d Elsewher e: No [facility] E[facility] Coil Maker gildardo: N Practi ce ID: 0001 Micheal lable Time: 01:00:00 PM [facility] 17:55:58 Pain in female genitali a Completed 201703/03/2021 Dysmenor sue, unspecif ied;Prac naz ID: 0001 [facility] 17:56:01 Insertio n of subcutan eous contrace ptive Completed 201703/03/2021 Encounte r for initial prescrip tion of implanta ble subderma l contrace ptive;Re corded Elsewher e: No Locat ion: [facility] S ource: EHR Coil Maker gildardo: N Practi ce ID: 0001 Micheal lable Time: 08:45:00 AM [facility] 17:56:00 Pregnanc y 69373829 Active 2023 [facility] 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 4 14:15:23 Problem Notes None recorded. Procedures Surgical History Date Name Laterality Status Provider Name and Address Organization Details Recorded Time 12/04/19 22 Date of Last Pap Smear completed Natalie Isidro [facility] 12/03/2021 14:30:08 02/06/19 cranioclasis completed Natalie Isidro [facility] 12/04/2021 14:12:26 Imaging Results Imaging Date Name Status LastModified by Organiz ation Details LastModified Time 03/22/2024 non-stress test completed [place] [address], [place], [address], 03/22/2024 17:41:24 03/22/2024 non-stress test completed [place] [address], [place], [address], 03/22/2024 17:43:11 03/22/2024 non-stress test completed [address] [facility] [address] [facility], [place], [address], 03/29/2024 13:54:51 03/22/2024 US, obstetric, biophysical profile completed [place] [address], [place], [address], 03/25/2024 11:03:27 04/05/2024 non-stress test completed [place] [address], [place], [address], 04/05/2024 17:56:25 04/05/2024 non-stress test completed [place] [address], [place], [address], 04/05/2024 18:19:37 Procedure Notes None recorded. Medical Equipment None Reported. Allergies Allergen ID Allergen Name Allergen Category Reaction Reaction Severity Criticality Documentation Date Start Date Code Code System Note Provider Name and Address Organization Details Recorded Time 63040 apple extract food Not available Not available Not available 01/24/2020 68239 65 RxNorm React ion: swell ing,s ob; Comme nt: [facility]at [facility]; Not Available [facility] 14:18:02 Medications Name Sig Start Date Stop Date Status Note LastModified by Organization Details LastModified Time azithromy blake 250 mg tablet TAKE 2 TABLETS BY MOUTH TODAY, THEN TAKE 1 TABLET DAILY FOR 4 DAYS DIRECTED 03/22 completed Not Available Not Available Not Available prednison e 20 mg tablet TAKE 1 TABLET BY MOUTH TWICE A DAY 09/28 completed Not Available Not Available Not Available fluoxetin e 10 mg tablet TAKE 1 TABLET BY MOUTH EVERY DAY 09/28 completed Not Available Not Available Not Available triamcino lone acetonide 0.1 % topical cream APPLY THIN FILM TO AFFECTED AREA TWO TIMES A DAY NEEDED 02/20 completed Not Available Not Available Not Available Macrobid 100 mg capsule Take 1 capsule every 12 hours by oral route for 7 days. 03/06 completed Not Available Not Available Not Available Ortho-Nov um (28) 1 mg-35 mcg tablet take 1 tablet by oral route every day for 28 days 08/17 completed Prescrib ed Elsewher e: No Locat ion: [facility] odify By: mario valadez DateTime : 07/22/19 18 09:51:25 AM Not Available Not Available Not Available amoxicill in 875 mg-potass ium clavulana te 125 mg tablet TAKE 1 TABLET BY MOUTH EVERY 12 HOURS 09/28 completed Not Available Not Available Not Available Mouthpiec e device 02/20 completed Prescrib ed Elsewher e: Yes Loca tion: [facility] odify By: kathy reyes DateTime : 12/10/19 17 01:00:00 PM Not Available Not Available Not Available + DHA active Not Available Not Available Not Available Taytulla 1 mg-20 mcg (24)/75 mg (4) capsule take 1 capsule by oral route every day at the same time each day 03/17 completed Prescrib ed Elsewher e: No [facility] By: reji guillaume DateTime : 02/27/19 18 03:04:54 PM Not Available Not Available Not Available Vitals Date Recorded Body weight Body mass index (BMI) Body height Body height Body mass index (BMI) Body weight Systolic blood pressure Diastolic blood pressure Systolic blood pressure Diastolic blood pressure Provider Name and Address Organization Details Last Updated DateTime 5 41567.8 555 g 26.6 kg/m2 160.02 cm 160.02 cm 26.6 kg/m2 77477.8 6 g 133 mm[Hg] 91 mm[Hg] 133 mm[Hg] 91 mm[Hg] Natalie Isidro [facility] 5 17:39:59 Date Recorded Body height Body mass index (BMI) Body weight Systolic blood pressure Diastolic blood pressure Provider Name and Address Organization Details Last Updated DateTime 03/27/2024 160.02 cm 26.7 kg/m2 78473.45 g 118 mm[Hg] 79 mm[Hg] Natalie Isidro [facility] 16:46:39 Date Recorded Body height Body mass index (BMI) Body weight Body height Body mass index (BMI) Body weight Systolic blood pressure Diastolic blood pressure Systolic blood pressure Diastolic blood pressure Provider Name and Address Organization Details Last Updated DateTime 5 160.02 cm 26.7 kg/m2 25308.4 5 g 160.02 cm 26.7 kg/m2 80683.4 5 g 120 mm[Hg] 81 mm[Hg] 120 mm[Hg] 81 mm[Hg] Natalie Isidro [facility] 17:55:00 Social History Question Answer Notes LastModified by Organizat ion Details LastModified Time Tobacco Smoking Status Never Smoker Felisa Wilfrid [facility] 03/04/2021 11:31:37 What Is Your Level Of Alcohol Consumption? None Information not available 03/04/2021 If You Are , What Was Your Level Of Alcohol Consumption Prior To ? Occasional [email or web address] Information not available 09/29/2023 Are You Blind Or Do You Have Difficulty Seeing? No Information n ot available 03/04/2021 What Is Your Level Of Caffeine Consumption? Occasional Information not available 03/04/2021 In The 14 Days Before Symptom Onset, Have You Had Close Contact With A Laboratory-confirm ed COVID-19 While That Case Was Ill? No [email or web address] Information n ot available 09/29/2023 In The 14 Days Before Symptom Onset, Have You Had Close Contact With A Person Who Is Under Investigation For COVID-19 While That Person Was Ill? No [email or web address] Information not available 09/29/2023 Have You Been To An Area Known To Be High Risk For COVID-19? No [email or web address] Information not available 09/29/2023 Are You Deaf Or Do You Have Serious Difficulty Hearing? No Information not available 03/04/2021 What Type Of Diet Are You Following? REGULAR Information n ot available 03/04/2021 Do You Use Your Seat Belt Or Car Seat Routinely? Yes Information not available 03/04/2021 Do You Have Smoke And Carbon Monoxide Detectors In Your Home? Yes Information not available 03/04/2021 Do You Feel Stressed (tense, Restless, Nervous, Or Anxious, Or Unable To Sleep At Night)? [id number] Information not available 03/04/2021 Do You Use Any Illicit Or Recreational Drugs? No Information not available 03/04/2021 Do You Use Sunscreen Routinely? Yes Information not available 03/04/2021 Has Tobacco Cessation Counseling Been Provided? No [email or web address] Information not available 09/29/2023 Do You Or Have You Ever Used Any Other Forms Of Tobacco Or Nicotine? No [email or web address] Information not available 09/29/2023 Sex: Unknown Functional Status Question Answer Note LastModified by Organizat ion Details LastModified Time Do you have difficulty walking or climbing stairs? No [email or web address] Information not available 09/29/2023 Are you able to walk? YESWOREST Information not available 03/04/2021 Are you able to care for yourself? Yes [email or web address] Information not available 09/29/2023 Do you have difficulty dressing or bathing? No [email or web address] Information not available 09/29/2023 What is your exercise level? Moderate Information not available 03/04/2021 Mental Status None recorded. Family History Relationship Description Onset Age of this Age Resolved Age Notes LastModified by Organization Details LastModified Time Maternal Grandfather Malignant tumor of colon Not available 2021 11:28:26 Maternal Grandfather Malignant tumor of prostate [email or web address] Not available 12/22 20:31:03 Maternal Grandmother Hypertensive disorder Not available 2021 11:28:38 Maternal Grandmother Diabetes mellitus Not available 2021 11:28:50 Maternal Grandmother Malignant tumor of breast [email or web address] Not available 12/04 14:10:04 Mother Disorder of thyroid gland Not available 2021 11:29:08 Mother Malignant tumor of ovary Not available 2021 11:29:16 Paternal Grandfather Asthma Not available 2021 11:29:39 Paternal Grandfather Anemia [email or web address] Not available 14:09:54 Paternal Grandfather Heart disease [email or web address] Not available 12/04 14:10:22 Sister Asthma Not available 11:30:24 Sister Disorder of thyroid gland Not available 2021 11:30:50 Father Heart disease [email or web address] Not available 12/04 14:10:22 Father Hypercholest erolemia [email or web address] Not available 12/04 14:10:36 Father Hypertensive disorder [email or web address] Not available 12/04 14:10:42 Medical History Condition Response Allergies (Food, seasonal, environmental ) Y Other N Blood Transfusion N Drug/Latex Allergies/Reactions N Breast Cancer N Dermatologic Disorders N Lung Disease N Defects or Inherited Disease N Breast Problem N Gestational Diabetes N Hematologic disorders N Anesthesia Complications N History of STI N Deep Vein Thrombosis N Polycystic ovary syndrome N Anxiety Disorder N Autoimmune disease N Arthritis N Infertility N Polyps N Acid Reflux (GERD) N History of abnormal pap N Cancer N Stroke N Varicosities N Neurologic/Epilepsy Y Endometriosis N High Cholesterol N Headaches N Fibromyalgia N Kidney Disease N Heart Problems N Kidney or Bladder Problems N Thyroid Problems N GI Problems N Eating Disorder N Anemia Y Art (IVF or FET) N Psychiatric Illness N Ovarian Cancer N Diabetes N Pulmonary (TB, Asthma) N Hepatitis/Liver Disease N No Past Medical History N Eczema N Urinary Tract Infection N Abuse/Domestic Violence N Asthma Y Trauma/Violence N Depression/ depression N Heart Disease N Pre-Eclampsia N Hypertension N Osteoporosis N Thrombophilias N Gynecological History Statement/Question Response Abnormal Pap N Date of Last Colonoscopy Date of Last Mammogram Date of LMP 07/02/2023 Date of DEXA bone scan Date of Last Pap Smear 12/03/2021 Current Control Method LMP Approximate Obstetrics History GPAL:G 1 P 0 0 0 0 Type Value Living 0 Total 1 Past Encounters Encounter ID Performer Location Encounter Start Date Encounter Closed Date Diagnosis/Indication Diagnosis SNOMED-CT Code Diagnosis ICD10 Code Diagnosis Note [id number] Natalie Isidro [facility] [address],[place] [address] 12/03/2021 13:36:49 12/03/2021 14:22:30 Gynecologic examination [id number] Z01.419 [id number] Francine Reddy [facility] [address],[place] [address] 09/01/2023 09:24:12 09/01/2023 10:21:20 Amenorrhea [id number] N91.2 [id number] [facility] [address],[place] [address] 09/01/2023 09:23:37 09/01/2023 09:52:44 [id number] [facility] [address],[place] [address] 09/29/2023 11:54:10 09/29/2023 12:52:25 screening [id number] Z36.82 Z3A.22 [id number] Francine Reddy [facility] [address] [place] [address] 09/29/2023 11:55:48 09/29/2023 14:46:25 Gestation period, 12 weeks [id number] Z3A.12 Routine an tenatal care [id number] Z34.90 [id number] Francine Reddy [facility] [address],[place] [address] 10/27/2023 09:57:37 10/27/2023 11:04:06 Gestation period, 16 weeks [id number] Z3A.16 [id number] Yeny Pascual Medina [address],[place] [address] 11/24/2023 09:55:10 11/24/2023 11:00:58 screening for malformation [id number] Z36.3 Z3A.20 [id number] Francine Reddy [facility] [address],[place] [address] 11/24/2023 10:01:53 11/24/2023 11:17:48 Gestation period, 20 weeks [id number] Z3A.20 [id number] [facility] [address],[place] [address] 12/22/2023 09:25:03 12/22/2023 09:50:13 Routine care [id number] Z34.90 [id number] [facility] [address],[place] [address] 01/12/2024 15:33:53 01/12/2024 16:22:21 Gestation period, 27 weeks [id number] Z3A.27 [id number] Nelda Yuen [facility] [address],[place] [address] 02/08/2024 13:59:53 02/08/2024 14:58:17 Small for gestational age fetus [id number] O36.5930 Z03.79 Z3A.31 [id number] Francine Reddy [facility] [address],[place] [address] 02/09/2024 14:01:59 02/09/2024 14:59:44 Routine care [id number] Z34.90 [id number] [facility] [address] [address] 02/21/2024 17:01:15 02/21/2024 17:47:36 Gestation period, 33 weeks 75815498 Z3A.33 Urinary tr act infectious disease 43326127 N39.0 [id number] [facility] [address],[place] [address] 03/06/2024 15:58:31 03/06/2024 16:38:16 Gestation period, 35 weeks [id number] Z3A.35 screening [id number] Z36.85 [id number] [facility] [address],[place] [address] 03/15/2024 16:43:13 03/18/2024 11:44:17 Gestation period, 36 weeks 45297209 Z3A.36 Upper resp iratory infection [id number] J06.9 [id number] [facility] [address],[place] [address] 03/22/2024 16:00:50 03/22/2024 16:32:16 Gestation period, 37 weeks [id number] Z3A.37 [id number] Natalie Isidro [place] [address] 03/22/2024 17:38:56 03/25/2024 12:55:58 tachycardia affecting management of mother [id number] O36.8399 [id number] [facility] [address] [place] [address] 03/27/2024 16:30:37 03/27/2024 17:20:43 Gestation period, 38 weeks [id number] Z3A.38 [id number] [facility] [address] [place] [address] 04/04/2024 10:05:55 04/05/2024 13:32:19 [id number] Natalie [place] [address] 04/05/2024 14:59:35 04/07/2024 23:49:10 Chronic hypertension complicating AND/OR reason for care during [id number] O16.9 [id number] [facility] [address] [address] 04/05/2024 16:05:09 04/05/2024 16:15:09 Gestation period, 39 weeks [id number] Z3A.39 Health Concerns Section Related Observation LastModified by Organization Detai ls LastModified Time None Recorded Concern Status LastModified by Organization Details LastModified Time None Recorded Advance Directives Directive None Recorded Payers Encounter Date Sequence Insurance Name Policy Number Policy Caicedo Covered Member ID Caicedo Member ID Guarantor Name 03/22/2024 1 [place] [id number] [place] [id number] 25 [place] 03/27/2024 1 [place] [id number] [place] [id number] 25 [place] 04/04/2024 1 [place] [id number] [place] [id number] 25 [place] 04/05/2024 1 [place] [id number] [place] [id number] 25 [place]min [place] 04/05/2024 1 [place] [id number] [place] [id number] 25 [place] OBGyn Episode Ob Episode Information Episode Created Date Number of Fetuses Patient Bloodtype Patient rh Status Prepregnancy Weight lbs Domestic Partner Domestic Partner Phone Father Name Graphics Edit Technician Status 09/29/19 24 1 O Positive 131 Tay Brown OPEN Fetus Data First Name Last Name Admitted to NICU Weight (g) Sex Living Outcome Pediatric Complications Fetus ID Race Codes Race Delivery Type [id number] Problems Problem Notes MFM - small 2.4mm cardiac ef fusion noted on 11/23 u/s report - 12/04/23 1pm & 12/31 1:45PM01/01/24 1:45pm u/s only complete anatomy and growth - Level II anatomy complete. No major malformations. Follow up as clincially indicated. 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 Xander Calculation Initial Xander Date Initial Exam Date Initial Exam Provider Initial Ultrasound Date Last Menstrual Period Date Ultra Sound Weeks Gestation 04/07/2024 09/01/2023 Francine Reddy 09/01/2023 07/02/2023 8 Eighteen To Twenty Week Xander Update Ultra Sound Date Fundal Height At Umbil Quickening Date Ultra Sound Latest Weeks Gestation Final Xander Confirmed By Final Xander Confirmed Date Final Xander Date Ultra Sound Latest Days Gestation 0 0 Pre- Flowsheet Flowsheet Date 09/29/2023 Pretty Score Blood Edema Fundus Height Fundus Units Glucose Ketones Leukocytes Nitrite Labor Signs Protein Cervic Dilation Cervic Effacement Cervic Station neg none none trace Type Weight in lbs Pre/Post Dialysis Refused Weight 130.739600428938 BP Diastolic BP Location Tested BP Systolic BP Type 71 118 Fetus Heart Rate Present Fetus Movement A No Comments reviewed education and preca utions, history of sagittal craniosynostios, reynauds, CRPS, Anemia, currently on pnv, begin routine prental care Flowsheet Date 10/27/2023 Pretty Score Blood Edema Fundus Height Fundus Units Glucose Ketones Leukocytes Nitrite Labor Signs Protein Cervic Dilation Cervic Effacement Cervic Station Type Weight in lbs Pre/Post Dialysis Refused 130.464054939523 BP Diastolic BP Location Tested BP Systolic BP Type 75 115 Fetus Heart Rate Present Fetus Movement A No Comments Patient is having some nause a. +FM by US, by sp no movement yet, precautions and education plan 20 weeks anatomy scan Flowsheet Date 11/24/2023 Pretty Score Blood Edema Fundus Height Fundus Units Glucose Ketones Leukocytes Nitrite Labor Signs Protein Cervic Dilation Cervic Effacement Cervic Station Type Weight in lbs Pre/Post Dialysis Refused BP Diastolic BP Location Tested BP Systolic BP Type Fetus Heart Rate Present Fetus Movement Comments Flowsheet Date 11/24/2023 Pretty Score Blood Edema Fundus Height Fundus Units Glucose Ketones Leukocytes Nitrite Labor Signs Protein Cervic Dilation Cervic Effacement Cervic Station none Type Weight in lbs Pre/Post Dialysis Refused 132.266463975465 BP Diastolic BP Location Tested BP Systolic BP Type 77 111 Fetus Heart Rate Present Fetus Movement A Yes Comments Patient is having nausea and vomiting . 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 had GI virus doing better, precautions and education Glucose today f/u 2 weeks Flowsheet Date 02/08/2024 Pretty Score Blood Edema Fundus Height Fundus Units Glucose Ketones Leukocytes Nitrite Labor Signs Protein Cervic Dilation Cervic Effacement Cervic Station Type Weight in lbs Pre/Post Dialysis Refused BP Diastolic BP Location Tested BP Systolic BP Type Fetus Heart Rate Present Fetus Movement Comments Flowsheet Date 02/09/2024 Pretty Score Blood Edema Fundus Height Fundus Units Glucose Ketones Leukocytes Nitrite Labor Signs Protein Cervic Dilation Cervic Effacement Cervic Station none Type Weight in lbs Pre/Post Dialysis Refused 146.025966877794 BP Diastolic BP Location Tested BP Systolic BP Type 74 116 Fetus Heart Rate Present A 146 Present Fetus Movement A Yes Comments Patient states that is havin g some cramping. reviewed education and precautions ok for rsv, call for preadmit, efw 18%, wnl f/u 2 weeks ok for benedryl for sleep Flowsheet Date 02/21/2024 Pretty Score Blood Edema Fundus Height Fundus Units Glucose Ketones Leukocytes Nitrite Labor Signs Protein Cervic Dilation Cervic Effacement Cervic Station Type Weight in lbs Pre/Post Dialysis Refused 145.8254310215 BP Diastolic BP Location Tested BP Systolic BP Type 72 109 Fetus Heart Rate Present Fetus Movement A Yes Comments Patient is having cramping, contractions, back pain and feels the urge to push. was just seen in ld no contractions cervix closed, tx for uti, if fever or vomiting back to LD, precautions and education, has preadmit appt scheduled Flowsheet Date 03/06/2024 Pretty Score Blood Edema Fundus Height Fundus Units Glucose Ketones Leukocytes Nitrite Labor Signs Protein Cervic Dilation Cervic Effacement Cervic Station neg none 34 cm Type Weight in lbs Pre/Post Dialysis Refused 149.534099026598 BP Diastolic BP Location Tested BP Systolic BP Type 73 111 Fetus Heart Rate Present A 145 Present Fetus Movement A Yes Comments Patient is having some BH co ntractions. GBS collected cervix FT/soft, ptl precautions +FM f/u one week Flowsheet Date 03/15/2024 Pretty Score Blood Edema Fundus Height Fundus Units Glucose Ketones Leukocytes Nitrite Labor Signs Protein Cervic Dilation Cervic Effacement Cervic Station neg none Type Weight in lbs Pre/Post Dialysis Refused 149.467101341812 BP Diastolic BP Location Tested BP Systolic BP Type 74 111 Fetus Heart Rate Present A 146 Present Fetus Movement A Yes Comments Patient states that is havin g some cramping. respiratory sxs x 4 weeks, now green nasal drainage, will rx zpack, +FM cervix FT/soft f/u one week, labor precautions +FM Flowsheet Date 03/22/2024 Pretty Score Blood Edema Fundus Height Fundus Units Glucose Ketones Leukocytes Nitrite Labor Signs Protein Cervic Dilation Cervic Effacement Cervic Station neg none Type Weight in lbs Pre/Post Dialysis Refused 150.057893061058 BP Diastolic BP Location Tested BP Systolic BP Type 91 133 Fetus Heart Rate Present Fetus Movement A Yes Comments Patient is having some cramp ing. rpt bp 139/82, denies rahman, visual changes, epigastric pain, labs today, FHR 170 by doppler plan NSTprecautions and education, no change in cervix Flowsheet Date 03/22/2024 Pretty Score Blood Edema Fundus Height Fundus Units Glucose Ketones Leukocytes Nitrite Labor Signs Protein Cervic Dilation Cervic Effacement Cervic Station Type Weight in lbs Pre/Post Dialysis Refused Weight 150.653756948612 BP Diastolic BP Location Tested BP Systolic BP Type 91 133 Fetus Heart Rate Present Fetus Movement Comments Flowsheet Date 03/27/2024 Pretty Score Blood Edema Fundus Height Fundus Units Glucose Ketones Leukocytes Nitrite Labor Signs Protein Cervic Dilation Cervic Effacement Cervic Station neg none 35 cm Type Weight in lbs Pre/Post Dialysis Refused Weight 151.896901901777 BP Diastolic BP Location Tested BP Systolic BP Type 79 118 Fetus Heart Rate Present A 147 Fetus Movement A Yes Comments cervix 0.5 cm/ +FM, would li ke IOL, plan for 39.5 weeks, order sent, precautions and education f/u one week Flowsheet Date 04/04/2024 Pretty Score Blood Edema Fundus Height Fundus Units Glucose Ketones Leukocytes Nitrite Labor Signs Protein Cervic Dilation Cervic Effacement Cervic Station Type Weight in lbs Pre/Post Dialysis Refused BP Diastolic BP Location Tested BP Systolic BP Type Fetus Heart Rate Present Fetus Movement Comments Flowsheet Date 04/05/2024 Pretty Score Blood Edema Fundus Height Fundus Units Glucose Ketones Leukocytes Nitrite Labor Signs Protein Cervic Dilation Cervic Effacement Cervic Station Type Weight in lbs Pre/Post Dialysis Refused Weight 151.055904584035 BP Diastolic BP Location Tested BP Systolic BP Type 81 120 Fetus Heart Rate Present Fetus Movement Comments Flowsheet Date 04/05/2024 Pretty Score Blood Edema Fundus Height Fundus Units Glucose Ketones Leukocytes Nitrite Labor Signs Protein Cervic Dilation Cervic Effacement Cervic Station neg none Type Weight in lbs Pre/Post Dialysis Refused Weight 151.413326252039 BP Diastolic BP Location Tested BP Systolic BP Type 81 120 Fetus Heart Rate Present Fetus Movement A Yes Comments NST R, IOL got moved until m onday, +FM cervix , if any labor sxs to hospital Menstrual History Last Menstrual Date Menses Monthly On Bcp Conception Prior Menses Frequency Hcg Plus Date Menarche Onset Age 0507/02/2023 Genetic Screening And Infection History Question Response Note Mental Retardation/Autism false Patient's Age Will Be 35 Yea rs Or Older At Estimated Date of Delivery false Thalassemia (Malay, Azerbaijani, Mediterranean, Or Background): MCV < 80 false Neural Tube Defect (Meningom yelocele, Spina Bifida, Or Anencephaly) false Congenital Heart Defect false Down Syndrome false Dann-Sachs (eg, Roman Catholic, Cajun, Nepalese-Moffett) f alse Osorio Disease false Sickle Cell Disease Or Trait () false Hemophilia Or Other Blood Disorders false Muscular Dystrophy false Cystic Fibrosis false [place]'s Ch[place] false Intellectual Disability/Autism false If Yes, Was Person Tested For Fragile X? false Other Inherited Genetic Or Chromosomal Disorder false Maternal Metabolic Disorder (eg, Type 1 Diabetes , PKU) false Patient Or Baby's Father Had A Child With Defects Not Listed Above false Recurrent Loss, Or A Stillbirth false Medications (including Suppl ements, Vitamins, Herbs, OTC Drugs), Illicit/Recreational Drugs, Alcohol false If Yes, Agent(s) And Strength/Dosage false Any Other Genetic History true family hx of turners Live With Someone With TB Or Exposed To TB false Patient Or Partner Has History Of Genital Herpes false Rash Or Viral Illness Since Last Menstrual Perio d false History Of STD, Gonorrhea, Chlamydia, HPV, Syphi lis false Other Infection History false History of HIV false History of Hepatitis false Prior GBS-infected child false Hemoglobinopathy Or Carrier false Other Structural Defect false Recent Travel History Outside of Country false Delivery Information Delivery Date Delivery Type Labor Anesthesia Weeks Gestation Incision Type Labor Labor Length Hrs Delivered By Post Complications Tubal Sterilization Discharge Date Comments Discharge Information Feeding Method Contraceptive Method Maternal HG B and HCT Levels
--- OUTSIDE RECORDS SUMMARY | 2024-04-08 05:01 | XMS_ITS | Clinical Summary ---
Author Organization [facility] [employer] Address [address] [place] [address] Care Team Providers Care Cashier Self Service Gasoline Name Role Phone Suraj Chirinos MD Primary Care Provider [phone] Cynthia Thomas APRN-RAILCAR FOREMAN Unavailable [phone] Source Comments [facility] [employer],non-owned Affiliates and Associated Physician Practices is amultiple site organization consisting of ambulatory clinics and hospital sitesin [place], [place], [place] and [place]. This disclosure is being madepursuant to the Care Everywhere program and may not contain all information available regarding this patient. Last updated 17.[facility] [employer] Allergies No known active allergies Social History Tobacco Use Types Packs/Day Years Used Date Smoking Tobacco: Never Assessed Estimated Date of Delivery Comme nts Yes 04/07/2024 Based on Patient Reported Sex and Gender Information Value Date Recorded Sex Assigned at Not on file Gender Identity Not on file Sexual Orientation Not on file Plan of Treatment Health Maintenance Due Date Last Done Comments HIV SCREENING 11/29/2015 HPV VACCINE (1 - 3-dose series) 11/29/2015 CHLAMYDIA/GONORRHEA SCREENING 2016 MENINGOCOCCAL (Group B) VACCINE (1 of 2 - Standard) 2016 HEPATITIS C SCREENING 11/24/2018 DTAP/TDAP/TD VACCINES (1 - Tdap) 11/29/2019 HEPATITIS B VACCINE (1 of 3 - 19+ 3-dose series) 11/29/2019 COVID-19 VACCINE (3 - 2023- season) 2023 09/11/2020, 08/14/2020 INFLUENZA VACCINE (#1) 2023 , 01/03/2022, 03/19/2020, Additional history exists OB-ONE HOUR GLUCOSE 12/31/2023 OB-TDAP CURRENT 01/07/2024 OB-RHOGAM INJECTION 01/14/2024 DEPRESSION SCREENING 02/07/2024 OB-GROUP B STREP SCREEN 03/03/2024 PAP SMEAR 12/03/2024 12/03/2021, 12/03/2021 ZOSTER VACCINE (1 of 2) 2050 HIB VACCINE Aged Out No longer eligi ble based on patient's age to complete this topic MENINGOCOCCAL VACCINE Aged Out No shereen yanique eligible based on patient's age to complete this topic PNEUMOCOCCAL VACCINE Aged Out No long er eligible based on patient's age to complete this topic Respiratory Syncytial Virus (RSV) Vaccine Pt: or over 60 yrs (No Doses Required) Completed Care Teams Cashier Self Service Gasoline Relationship Specialty Start Date End Date Suraj Chirinos MD PCP - General Family Medicine 03/03/14 Cynthia Thomas APRN-RAILCAR FOREMAN [address] [place] [address] [address] [place] [address] PCP - Attributed-BCBS Medicaid [place] 01/07/24
--- OUTSIDE RECORDS SUMMARY | 2024-04-08 05:01 | XMS_ITS | Continuity of Care Document ---
Author Organization [employer] [place] Address [address] [facility] [address] [place] [address] Phone Care Team Providers Care It Corporate Recruiter Name Role Phone Sandhya PTVu Unavailable Unavailable Procedures Procedure Date PT Re-evaluation Therapeutic Exercise Therapeutic Activities Neuromuscular Re-Ed Manual Therapy Hot or Cold Pack Electrical Stimulation Therapeutic Exercise Therapeutic Activities Neuromuscular Re-Ed Manual Therapy Hot or Cold Pack Electrical Stimulation Therapeutic Exercise Neuromuscular Re-Ed Manual Therapy Hot or Cold Pack Electrical Stimulation Therapeutic Exercise Therapeutic Activities Neuromuscular Re-Ed Manual Therapy Hot or Cold Pack Electrical Stimulation Therapeutic Exercise Therapeutic Activities Neuromuscular Re-Ed Manual Therapy Hot or Cold Pack Electrical Stimulation Therapeutic Exercise Therapeutic Activities Neuromuscular Re-Ed Manual Therapy Hot or Cold Pack Electrical Stimulation Therapeutic Exercise Therapeutic Activities Neuromuscular Re-Ed Manual Therapy Therapeutic Exercise Therapeutic Activities Neuromuscular Re-Ed Manual Therapy Therapeutic Exercise Therapeutic Activities Neuromuscular Re-Ed Manual Therapy Hot or Cold Pack Electrical Stimulation Therapeutic Exercise Therapeutic Activities Neuromuscular Re-Ed Manual Therapy Therapeutic Exercise Therapeutic Activities Neuromuscular Re-Ed Manual Therapy Hot or Cold Pack Electrical Stimulation PT Evaluation Low Complexity Therapeutic Exercise Therapeutic Activities Manual Therapy Hot or Cold Pack Electrical Stimulation Advance Directives Directive Yes / No Effective Date File Name No Information Encounters Encounter Description Practice Location Reason(s) For Visit Diagnoses Date Provider Providers Copied on Encounter [facility], [id number], tel:[phone] [place] Low back painOther specified dorsopathies, lumbar regionMuscle weakness (generalized) Other specified disorders of muscle May-0 9-201 9 Dellamano Vu. . Referring Provider: Suraj Chirinos, [address] [place] [address], [place], [address]. tel:[phone] [facility], [id number], tel:[phone] [place] Low back painOther specified dorsopathies, lumbar regionMuscle weakness (generalized) Other specified disorders of muscle May-0 6-201 9 Dellamano Vu. . Referring Provider: Suraj Chirinos, [address] [place] [address] 200, [place], [address]. tel:[phone] [facility] [address] [facility] [address], [place], [place], [id number], [place] tel:[phone] [place] Low back painOther specified dorsopathies, lumbar regionMuscle weakness (generalized) Other specified disorders of muscle Apr-2 9-201 9 Niederhoffer Diana. . Referring Provider: Suraj Chirinos, [address] [place] [address] 200, [place], [address]. tel:[phone] [facility] [address] [facility] [address], [place], [place], [id number], [place] tel:[phone] [place] Low back painOther specified dorsopathies, lumbar regionMuscle weakness (generalized) Other specified disorders of muscle Apr-2 5- 9 Niederhoffer Diana. . Referring Provider: Suraj Chirinos, [address] [place] [address] 200, [place], [address]. tel:[phone] [facility] [address] [facility] [address], [place], [place], [id number], [place] tel:[phone] [place] Low back painOther specified dorsopathies, lumbar regionMuscle weakness (generalized) Other specified disorders of muscle Apr-2 2-201 9 Dellamano Vu. . Referring Provider: Suraj Chirinos, [address] [place] [address] 200, [place], [address]. tel:[phone] [facility] [address] [facility] [address], [place], [place], [id number], [place] tel:[phone] [place] Low back painOther specified dorsopathies, lumbar regionMuscle weakness (generalized) Other specified disorders of muscle Apr-1 9- 9 Dellamano Vu. . Referring Provider: Suraj Chirinos, [address] [place] [address] 200, [place], [address]. tel:[phone] [facility] [address] [facility] [address], [place], [place], [id number], [place] tel:[phone] [place] Low back painOther specified dorsopathies, lumbar regionMuscle weakness (generalized) Other specified disorders of muscle Apr-1 5-201 9 Dellamano Vu. . Referring Provider: Suraj Chirinos, [address] [place] [address] 200, [place], [address]. tel:[phone] [facility] [address] [place] [address] 300, [place], [place], [id number], [place] tel:[phone] [place] Low back painOther specified dorsopathies, lumbar regionMuscle weakness (generalized) Other specified disorders of muscle Apr-1 1-201 9 Dellamano Vu. . Referring Provider: Suraj Chirinos, [address] [place] [address] 200, [place], [address]. tel:[phone] [facility] [address] [place] [address] 300, [place], [id number], [place] tel:[phone] [place] Low back painOther specified dorsopathies, lumbar regionMuscle weakness (generalized) Other specified disorders of muscle Apr-0 8-201 9 Dellamano Vu. . Referring Provider: Suraj Chirinos, [address] [place] [address] 200, [place], [address]. tel:[phone] [facility] [address] [place] [address] 300, [place], [place], [id number], [place] tel:[phone] [place] Low back painOther specified dorsopathies, lumbar regionMuscle weakness (generalized) Other specified disorders of muscle Apr-0 4-201 9 Dellamano Vu. . Referring Provider: Suraj Chirinos, [address] [place] [address] 200, [place], [address]. tel:[phone] [facility] [address] [place] [address] 300, [place], [id number], [place] tel:[phone] [place] Low back painOther specified dorsopathies, lumbar regionMuscle weakness (generalized) Other specified disorders of muscle Apr-0 1-201 9 Dellamano Vu. . Referring Provider: Suraj Chirinos, [address] [place] [address] 200, [place], [address]. tel:[phone] [employer] [place], [address] [facility], [place], [place], [id number], tel:[phone] [place] Low back painOther specified dorsopathies, lumbar regionMuscle weakness (generalized) Other specified disorders of muscle Mar-2 8-201 9 Sandhya Womack. . Referring Provider: Suraj Chirinos, [address] [facility] [address], [place], [address]. tel:[phone] Family History Family Member Type Diagnosis Age At Onset No Information Payers Payer name Insurance type Covered democrat ID Mell mary(s) [facility] [id number] [facility] CI [id number] Cornelio Davey [place] 00 Social History Type Description Quantity Date Captured Comments Sex Female Smoking Status No Information Chief Complaint And Reason For Visit No [...]
--- OUTSIDE RECORDS SUMMARY | 2024-04-08 05:01 | XMS_ITS | Clinical Summary ---
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 No corneal or retinal involvement per optho and conjunctivitis resolving with pain 2/10 in bilateral eyes. Plan: -Artificial tears PRN eye discomfort -Ophthalmology follow up 02/09/[address] Swann Other constipation 01/25/2018 Assessment & Plan (01/26/2018 12:29 PM APPLICATION DEVELOPMENT TEAM LEAD): Assessment: History of constipation that worsened during inpatient stay with additional use of pain medications. Abdomen soft and nontender still with complaints of hard stools Plan: -Discharge home with Miralax daily as needed Assessment & Plan (01/25/2018 9:58 PM APPLICATION DEVELOPMENT TEAM LEAD): No stool since 01/20 and worsened by narcotics given in hospital Plan: Continue Miralax BID Can give Senna if needed for stooling in addition to Miralax Acute pain 01/24/2018 Assessment & Plan (01/26/2018 1:16 PM APPLICATION DEVELOPMENT TEAM LEAD): Assessment: Patient experiencing acute pain with episode [...] finished) Assessment & Plan (01/25/2018 9:56 PM APPLICATION DEVELOPMENT TEAM LEAD): Over the last 24 hours pain has [...] discomfort Assessment & Plan (01/24/2018 11:39 AM APPLICATION DEVELOPMENT TEAM LEAD): Assessment: 17 yo female with eczema herpeticum [...] 01/23/2018 Assessment & Plan (02/09/2018 10:34 AM APPLICATION DEVELOPMENT TEAM LEAD): F/u with ophthalmology for routine refraction locally with contact lens provider. F/u here PRN. Continue Valtrex per MD team Assessment & Plan (01/26/2018 1:15 PM APPLICATION DEVELOPMENT TEAM LEAD): Assessment: Matt is a 17-year-old female with [...] days Assessment & Plan (01/25/2018 9:59 PM APPLICATION DEVELOPMENT TEAM LEAD): Matt is a 17-year-old female with a [...] pending Assessment & Plan (01/24/2018 11:40 AM APPLICATION DEVELOPMENT TEAM LEAD): Assessment: Matt is a 17-year-old female with [...] cultures Assessment & Plan (01/23/2018 2:15 AM APPLICATION DEVELOPMENT TEAM LEAD): Matt is a 17-year-old female with a [...] 13 06/01/2001, 001 Tdap 08/23/2012 Varicella 08/23/2012,08/30/2002 Surgical History Surgery Date Site/Laterality Comments CRANIECTOMY FOR CRANIOSYNOSTOSIS Medical History Medical History Date Comments History of surgery to other organs History Of Prior Surgery - --craniotomy at 4 months (Added by TW Conv) Urinary tract infection Eczema Raynaud disease Family History Medical History Relation Name Comments Hypertension Maternal Grandfather Hypertension Maternal Grandmother Hypothyroidism Mother Migraines Mother Family history of migraine headaches - (Added by TW Conv) Diabetes Other 1 Family history of diabetes mellitus - (Added by TW Conv) Hypertension Other 2 Family history of hypertension - (Added by TW Conv) Crohn's disease Other 3 Family histo ry of Crohn's disease - --second cousin, great aunt and great uncle all on maternal side. (Added by TW Conv) Hypertension Paternal Grandfather Hypertension Paternal Grandmother Relation Name Status Comments Maternal Grandfather Maternal Grandmother Mother Other 1 Other 2 Other 3 Paternal Grandfather Paternal Grandmother Social History Tobacco Use Types Packs/Day Years [...] on file Legal Sex Female 12:33 PM APPLICATION DEVELOPMENT TEAM LEAD Gender Identity Not on file Sexual Orientation Not on file Obstetrics History Para Term AB IAB SAB Ectopic Multiple Livin g Live Births 1 Date Outcome GA Total Labor Labor/2nd/3rd Weight Sex Type Anes PTL Herminia A1 A5 Name Clin Current Last Filed Vital Signs Vital Sign Reading [...] 07/31/2023 11:03 AM CDT Plan of Treatment Health Maintenance Due Date Last Done Comments Cervical Cancer Screening 2000 Depression Screening 2000 Hepatitis C Screening 2000 Meningococcal B Vaccine (1 of 2 - Standard) 2016 Regular Well Visit/Exam 18-64 2018 Covid-19 Vaccine (2 - season) 2023 09/11/2020 Influenza Vaccine (#1) 2023 03/19/2020 DTaP/Tdap/Td Vaccine (8 - Td or Tdap) 03/19/2030 03/19/2020, 08/23/2012, 09/12/2006, Additional history exists Pneumococcal vaccine <65 Aged Out 06/01/2001, 01/07 No longer eligible based on patient's age to complete this topic Varicella Vaccines Completed 08/23/2012, 0 09/12/2006, 08/30/2002, Additional history exists HPV Vaccines Completed 08/16/2013, 03/2012, 08/23/2012 Hepatitis B Screening Completed 04/27/2020 , 03/19/2020, 06/06/2001, Additional history exists Insurance BLUE ACCESS OOS [employer] ACCESS BLUE ACC[employer]OS Advance Directives For more information, please contact: [phone] * Full Code (Latest Code Status on File) Date Activated Date Inactivated Comments 01/23/2018 3:47 AM 01/26/2018 4:48 PM Care Teams Supervisor Painting Relationship Specialty Start Date End Date Suraj Chirinos MD [address] [facility] [address] [place] [address] PCP - General 08/01/17 Link Nunez DO [address] [place] [address] MEDICAL ONCOLOGY, [facility] [address] [place] [address] Medical Oncologist/Plastic Straightening Roll Operator Hematology and Oncology 02/10/22
--- OUTSIDE RECORDS SUMMARY | 2024-04-08 05:01 | XMS_ITS | Patient Health Summary ---
Author Organization [facility] Address [address] [facility] [place] [address] Care Team Providers Care Information Systems Auditor Name Role Phone Suraj Chirinos MD Primary Care Provider [phone] Cynthia Thomas APRN-[facility] Unavailable Note from [facility],non-owned Affiliates and Associated Physician Practices is amultiple site organization consisting of ambulatory clinics and hospital sitesin [place], [place], [place] and [place]. This disclosure is being madepursuant to the Care Everywhere program and may not contain all information available regarding this patient. Last updated 17.[facility] Allergies No known active allergies Social History Tobacco Use Types Packs/Day Years Used Date Smoking Tobacco: Never Assessed Estimated Date of Delivery Comme nts Yes 04/07/2024 Based on Patient Reported Sex and Gender Information Value Date Recorded Sex Assigned at Not on file Gender Identity Not on file Sexual Orientation Not on file Procedures * SONOGRAM - COMPLETE(Performed 01/01/2024) Performed for Encounter for supervision of normal first in second trimester ([facility]), 26 weeks gestation of ([facility]), Encounter for follow-up ultrasound of anatomy ([facility]), Encounter for ultrasound to assess growth ([facility]) * SONOGRAM - COMPLETE(Performed 12/04/2023) Performed for Supervision of normal first , antepartum ([facility]), 22 weeks gestation of ([facility]), Encounter for ultrasound ([facility]), Sagittal craniosynostosis, Abnormal ultrasound Results * SONOGRAM - COMPLETE (01/01/2024 1:45 PM TELEGRAPH REPEATER TECHNICIAN) Only the most recent of2 resultswithin the time period is included. 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 Weight 65 kg, 143 lb. Initial weight 60 kg, 132 lb. BMI 25.33 kg/m . Initial BMI 23.38 kg/m . Weight gain 5 kg, 11 lb ========= Guzman . Number of fetuses: 1 Dating ====== Date Details Gest. age CHRISTIAN LMP 07/02/2023 26 w + 1 d 04/07/2024 U/S 01/01/2024 based upon AC, BPD, Femur, HC 25 w + 6 d 04/09/2024 Assigned dating based on the LMP, selected on 01/01/2024 26 w + 1 d 04/07/2024 General Evaluation Cardiac activity present. FHR 135 bpm. Presentation: cephalic Placenta: Placental site: posterior Amniotic fluid: Amount of AF: normal. MVP 5.7 cm Biometry BPD 64.0 mm 25w 6d 31% Hadlock HC 236.0 mm 25w 5d 13% Hadlock AC 215.3 mm 26w 0d 37% Hadlock Femur 47.0 mm 25w 5d 22% Hadlock Humerus 42.8 mm 25w 4d 27% Chang HC / AC 1.10 Weight Calculation: EFW 861 g 28% Hadlock EFW (lb,oz) 1 lb 14 oz EFW by Hadlock (PYJ-WL-LT-FL) Head / Face / Neck Biometry: Cephalic index 0.76 23% Nicolaides appropriate Growth Overview Exam date GA BPD (mm) HC (mm) AC (mm) FL (mm) HL (mm) EFW (g) 01/01/2024 26w 1d 64 31% 236 13% 215.3 37% 47 22% 42.8 27% 861 28% Anatomy The following structures appear normal: Heart / Thorax LVOT view. Abdomen Stomach. Kidneys. Bladder. Genitals. Extremities / Skeleton Feet. The following structures were documented previously: Heart / Thorax 4-chamber view. Heart / Thorax other: Previously seen pericardial effusion appears normal today sex: female. Impression ========= Single, live, intrauterine at 26w 1d size appears appropriate Amniotic fluid volume: normal The anatomy survey is now complete No major malformations were seen within the limitations of ultrasound Comment ======== Craniosynostosis can be familial and become apparent on later ultrasound. evaluation is superior. No pericardial effusion is identified on today's ultrasound. Follow-up ======== Follow up as clinically indicated Coding ====== Procedures 25112: US Preg Uterus Follow Up [facility] [employer] PACS Anatomical Region Laterality Modality Other 01/01/2024 1:45 PM TELEGRAPH REPEATER TECHNICIAN Francine ROBLES [facility] ORDERABLES Care Teams Information Systems Auditor Relationship Specialty Start Date End Date Suraj Chirinos MD PCP - General Family Medicine 03/03/14 Cynthia Thomas APRN-CNP [address] [facility] [address] [place] [address] PCP - Attributed-[employer] Medicaid [place] 01/07/24
--- OUTSIDE RECORDS SUMMARY | 2024-04-08 05:01 | XMS_ITS | Referral Summary ---
Author Organization [facility] [employer] Address [address] [facility] [address] Care Team Providers Care Intermodal Truck Driver Name Role Phone Suraj Chirinos MD Primary Care Provider [phone] Cynthia Thomas APRN-MANAGER SUSTAINABILITY Unavailable [phone] Source Comments [facility] [employer],non-owned Affiliates and Associated Physician Practices is amultiple site organization consisting of ambulatory clinics and hospital sitesin [place], [place], [place] and [place]. This disclosure is being madepursuant to the Care Everywhere program and may not contain all information available regarding this patient. Last updated 17.[facility] [employer] Allergies No known active allergies Social History Tobacco Use Types Packs/Day Years Used Date Smoking Tobacco: Never Assessed Estimated Date of Delivery Comme nts Yes 04/07/2024 Based on Patient Reported Sex and Gender Information Value Date Recorded Sex Assigned at Not on file Gender Identity Not on file Sexual Orientation Not on file Plan of Treatment Not on file Care Teams Intermodal Truck Driver Relationship Specialty Start Date End Date Suraj Chirinos MD PCP - General Family Medicine 03/03/14 Cynthia Thomas APRN-MANAGER SUSTAINABILITY [address] [place] [address] [address] [place] [address] PCP - Attributed-[employer] Medicaid [place] 01/07/24
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
[2024-04-08 05:38] LABS: Basophils Percent Auto 0.3 % (0.2-1.2); Eosinophils Absolute Auto 0.1 K/mm3 (0-0.3); Eosinophils Percent Auto 0.9 % (0-4.4); Hematocrit 34.1 % (37.0-47.0); Hemoglobin 11.1 g/dL (12.0-15.0); Immature Granulocyte Absolute 0.08 K/mm3 (0.00-0.031); Immature Granulocyte Percent A 0.6 % (0-0.5); Lymphocytes Percent Auto 21.9 % (18.3-44.2); Mean Corpuscular HGB Conc 32.6 g/dl (32-36); Mean Corpuscular Hemoglobin 28.8 pg (26-34); Mean Corpuscular Volume 88.3 fl (80-100); Mean Platelet Volume 10.6 fl (7.4-10.4); Monocytes Absolute Auto 0.9 K/mm3 (0.1-0.6); Monocytes Percent Auto 6.9 % (2.6-8.5); Neutrophils Absolute Auto 8.6 K/mm3 (1.3-6.7); Neutrophils Percent Auto 69.4 % (45.5-73.1); Platelet Count Result 220 k/mm3 (150-375); Red Blood Count 3.86 M/mm3 (4.2-5.4); Red Cell Distribution Width 14.8 % (11.5-14.5); White Blood Count 12.4 K/mm3 (4.5-10.0)
--- NOTE | 2024-04-08 05:39 | LDADM ---
This patient, Jazmin Mills, was admitted to Labor/Delivery/Recovery 105 on 04/08/24 at 04:56. Plans for labor, pain management and were discussed with patient. Patient/family oriented to hospital policies and general routines including ID bracelet, bed and alarms, visiting hours, pain management, procedures, bathroom and other care routines, personal items, smoking policy, room service/diet and guest tray routines, infant security routines, and visiting hours. Patient/Family are encouraged to report perceived risks to care and to ask questions if they do not understand what they are told or what they should do. See [facility] for further documentation.
[2024-04-08] MEDS: miSOPROStol 25 MCG TABLET 50 MCG BUCCAL (05:49)
[2024-04-08 06:29] LABS: HIV 1/2 Ab P24 Ag Result Negative (Negative)
[2024-04-08 06:47] LABS: Syphilis IgG/IgM Antibody Negative (Negative)
[2024-04-08] MEDS: LACTATED RINGERS 1,000 ML 125 ML IV CONT ×3 (10:21→21:10)
[2024-04-08] MEDS: OXYTOCIN 30 UNITS/NS 500 ML 30 UNITS/500 ML BAG IV CONT (10:22)
--- NOTE | 2024-04-08 12:17 | WPDOBADMIT ---
Obstetrics - Admit Note Admission Note: record reviewed. No pertinent additions to the history and/or any subsequent changes in the physical findings that are not consistent with the expected course of the were found. Additions to the history and/or subsequent changes in the physical findings follow. admit for iol at 40.1 weeks today, SVE 1+/80/-2 AROM small amount of clear, odorless fluid, anticipate vaginal delivery
--- NOTE | 2024-04-08 14:54 | PM.IMHP ---
H&P: HPI History of Present Illness Date/Time: 04/08/24 14:54 Chief Complaint: Incomplete miscarriage Narrative: This patient is a 23 year old female with incomplete miscarriage. We have agreed to perform suction D&C. She understands risks benefits, and alternatives. She has completed informed consent process is ready to proceed. The patient understands the details of the procedure. The procedure has been explained in detail. She understands the risks. She understands that injuries may occur that result in hospitalization, more surgery, and severe illness. She understands risk of hemorrhage and infection. She denies any chest pain or shortness of breath. She denies any nausea, vomiting, fever, chills. Review of Systems Review of Systems: All systems reviewed & are unremarkable except as noted in HPI and below Constitutional: Constitutional: Denies chills, Denies fatigue, Denies fever(s) and Denies weakness Eyes: Eyes: Denies blurry vision, Denies change in vision, Denies loss of peripheral vision, Denies loss of vision, Denies other visual disturbances and Denies eye pain ENT: Denies vertigo, Denies dizziness, Denies hearing loss, Denies mouth pain, Denies nasal obstruction, Denies neck mass and Denies neck pain Cardiovascular: Cardiovascular: Denies chest pain, Denies diaphoresis, Denies syncope, Denies leg edema and Denies dyspnea Respiratory: Respiratory: Denies chest congestion, Denies cough, Denies hemoptysis, Denies dyspnea and Denies wheezing Gastrointestinal: Gastrointestinal: Denies abdominal pain, Denies constipation, Denies diarrhea, Denies nausea and Denies vomiting Genitourinary: Genitourinary: Denies hematuria, Denies change in libido, Denies nocturia, Denies genital lesions, Denies flank pain and Denies urinary urgency Musculoskeletal: Musculoskeletal: Denies abnormal gait, Denies back pain, Denies myalgias, Denies arthralgias, Denies joint swelling, Denies muscle weakness and Denies neck pain Integumentary/Breasts: Skin/Breast: Denies swelling, Denies breast pain, Denies breast mass, Denies dry skin, Denies nipple discharge, Denies unusual bruising and Denies jaundice Neurologic: Denies Neuro-related abnormal movements, Denies Abnormal speech present, Denies abnormal gait, Denies behavioral changes, Denies confusion, Denies vertigo, Denies dizziness, Denies syncope, Denies loss of vision, Denies memory loss, Denies convulsions and Denies weakness Psychiatric: Psychiatric: Denies abnormal sleep pattern, Denies behavioral changes, Denies change in libido, Denies confusion, Denies depression, Denies anhedonia and Denies memory loss Endocrine: Endocrine: Reports no additional endocrine complaints, Denies change in libido and Denies fatigue Hematologic/Lymphatic: Hematologic/Lymphatic: Reports no additional hematologic/lymphatic complaints Allergic/Immunologic: Allergic/Immunologic: Reports no additional allergic/immunologic complaints and Denies wheezing [facility] Family History Family History (Updated 03/12/24 @ 15:39 by Jennifer Whitaker RN) Father Hypertension Hyperlipidemia Social History Social History Smoking status: Never smoker Second hand tobacco smoke exposure: Yes Substance use: never Do You Feel Safe in your Home?: Yes Lack of Transportation: No Lack of Food: Never True Current Housing: I Have Housing Concerned About Future Housing: No Difficulty Paying Gas/Electric Bills: No Difficulty Paying for Meds: No Currently Unemployed: No Education: Associate Degree Difficulty w/ Childcare or Family Care: No Spiritual care concerns: No Meds Home Medications and Allergies Home Medications ?Medication ?Instructions ?Recorded ?Confirmed ?Type vits no.130-ferrous fum 1 tablet PO DAILY 03/12/24 03/22/24 History 27 mg iron-folic acid 800 mcg tablet ( Vitamin) Allergies Allergy/AdvReac Type Severity Reaction Status Date / Time apples Allergy Severe Difficulty Uncoded 03/22/24 18:44 Breathing Vital Signs Vital Signs - 24 hr 04/08/24 05:26 04/08/24 05:30 04/08/24 06:00 Temperature Pulse Rate 95 102 H 91 Blood Pressure 114/76 115/85 115/83 Pulse Oximetry 04/08/24 06:15 04/08/24 06:30 04/08/24 07:00 Temperature Pulse Rate 74 66 66 Blood Pressure 125/86 110/65 118/68 Pulse Oximetry 04/08/24 07:30 04/08/24 08:06 04/08/24 08:30 Temperature 97.2 F L Pulse Rate 79 71 Blood Pressure 103/58 L 120/73 Pulse Oximetry 04/08/24 09:00 04/08/24 09:30 04/08/24 10:00 Temperature Pulse Rate 75 84 100 Blood Pressure 113/72 114/64 120/73 Pulse Oximetry 04/08/24 10:30 04/08/24 11:00 04/08/24 11:30 Temperature Pulse Rate 91 94 77 Blood Pressure 118/70 115/69 124/71 Pulse Oximetry 04/08/24 11:50 04/08/24 12:30 04/08/24 13:00 Temperature 97 F L Pulse Rate 66 62 Blood Pressure 130/69 126/74 Pulse Oximetry 04/08/24 13:13 04/08/24 13:18 04/08/24 13:21 Temperature Pulse Rate 80 71 71 Blood Pressure 132/65 118/75 121/68 Pulse Oximetry 100 100 04/08/24 13:23 04/08/24 13:25 04/08/24 13:28 Temperature Pulse Rate 74 73 78 Blood Pressure 113/61 115/61 120/59 L Pulse Oximetry 100 100 04/08/24 13:30 04/08/24 13:33 04/08/24 13:35 Temperature Pulse Rate 73 69 67 Blood Pressure 123/66 117/61 115/58 L Pulse Oximetry 100 04/08/24 13:38 04/08/24 13:40 04/08/24 13:42 Temperature Pulse Rate 68 68 68 Blood Pressure 114/61 117/62 117/73 Pulse Oximetry 100 04/08/24 13:43 04/08/24 13:45 04/08/24 13:48 Temperature Pulse Rate 66 66 Blood Pressure 118/71 105/53 L Pulse Oximetry 100 100 04/08/24 13:50 04/08/24 13:52 04/08/24 13:53 Temperature Pulse Rate 64 66 Blood Pressure 105/56 L 103/58 L Pulse Oximetry 100 04/08/24 13:55 04/08/24 13:57 04/08/24 13:58 Temperature Pulse Rate 64 59 L Blood Pressure 100/49 L 98/45 L Pulse Oximetry 100 04/08/24 14:00 04/08/24 14:02 04/08/24 14:03 Temperature Pulse Rate 62 60 Blood Pressure 101/52 L 100/51 L Pulse Oximetry 100 04/08/24 14:05 04/08/24 14:07 04/08/24 14:08 Temperature Pulse Rate 65 61 Blood Pressure 102/58 L 94/51 L Pulse Oximetry 100 04/08/24 14:10 04/08/24 14:13 04/08/24 14:18 Temperature Pulse Rate 62 Blood Pressure 95/48 L Pulse Oximetry 100 100 04/08/24 14:23 04/08/24 14:28 04/08/24 14:30 Temperature Pulse Rate 70 Blood Pressure 123/78 Pulse Oximetry 100 100 04/08/24 14:33 04/08/24 14:38 04/08/24 14:43 Temperature Pulse Rate Blood Pressure Pulse Oximetry 100 100 100 04/08/24 14:45 04/08/24 14:48 04/08/24 14:53 Temperature Pulse Rate 64 Blood Pressure 115/76 Pulse Oximetry 100 100 Exam Const: General: cooperative, healthy appearing, comfortable and no acute distress Orientation/consciousness: oriented to person, oriented to place and oriented to time HENMT: Head: normal to inspection Ears: external ears normal Face/Nose/Sinus: Normal external nose present and normal facial exam Face and sinus: normal facial exam Eyes: General: appearance normal, both eyes and all related structures Neck: Neck: normal visual inspection, trachea midline and supple Resp: Auscultation: clear to auscultation bilaterally, no crackles, no rales, no rhonchi and no wheezes Cardio: Rate: regular rate Rhythm: regular rhythm Heart sounds: no click, no murmurs and no rubs GI: GI Palp: No abdominal tenderness, No Soft to palpation, No Tenderness to palpation present (GI) and No Palpable mass present Auscultation: normal bowel sounds Skin: General skin exam: normal color and no rashes or lesions noted Neuro: General: oriented to person, oriented to place and oriented to time Extrem: General: normal to inspection, no joint enlargement, no clubbing, cyanosis or edema, no pedal edema and no calf tenderness Psych: Appearance: grossly normal Mental Status: mental status grossly normal Speech and movement: Normal speech and movement present H&P: Results Labs Labs: Short CBC 04/08/24 Range/Units 05:33 WBC 12.4 H (4.5-10.0) K/mm3 Hgb 11.1 L (12.0-15.0) g/dL Hct 34.1 L (37.0-47.0) % Plt Count 220 (150-375) k/mm3 Assessment and Plan Assessment and plan (1) Incomplete miscarriage: Code(s): O03.4 - Incomplete spontaneous without complication Status: Acute Plan This patient is a 23 year old female with incomplete miscarriage. We have agreed to perform suction D&C. She understands risks benefits, and alternatives. She has completed informed consent process is ready to proceed.
--- NOTE | 2024-04-08 14:56 | WPDHPUPDATE1 ---
History and Physical Update Update Date/Time: 04/08/24 14:56 History and Physical has been reviewed, including an updated exam of the patient. There are NO changes in the patient's condition. Risks, benefits, and alternatives have been discussed and questions answered. Patient agrees to proceed with procedure.
[2024-04-08] MEDS: SODIUM CHLORIDE 0.9% IV 300 ML 600 ML I-UTERINE (18:40)
[2024-04-08] MEDS: SODIUM CHLORIDE 0.9% IV 1,000 ML 150 ML I-UTERINE (19:15)
[2024-04-09] VITALS (35 sets, daily range): BP systolic 94–134; BP diastolic 57–94; PULSE 63–114; RESP 16–18; TEMP 36.3–36.9; O2SAT 96–100
--- NOTE | 2024-04-09 01:35 | PM.OBPRVD ---
OB - Vaginal Delivery Note Procedure Delivery date: 04/09/24 Induction method: AROM and Per Pitocin Protocol Delivery monitor: External FHT and Internal Uterine Route of delivery: Episiotomy description: None Laceration Description: Superficial Specimen: No Quantitative Blood Loss (ml): 75 Anesthesia type: Epidural Disposition: Floor Complications: No immediate complications Baby Date of : 04/09/24 Time of : 01:25 Gestational Age by Date: 40 Infant gender: Female presentation: vertex position: Right Occiput Anterior Placenta delivery description: Spontaneous Cord Vessel Description: 3 Vessels and Around Body (x1) score one minute: 7 score five minutes: 8
[2024-04-09] MEDS: OXYTOCIN 30 UNITS/NS 500 ML 30 UNITS/500 ML BAG 125 UNITS IV CONT (02:00)
[2024-04-09] MEDS: IBUPROFEN 600 MG TABLET PO ×3 (03:59→17:52)
[2024-04-09] MEDS: BENZOCAINE 20% AER SPR (*SP) 56 GM CAN 1 SPRAY TOPICAL (04:00)
[2024-04-09] MEDS: WITCH HAZEL 40 PADS 1 PAD TOPICAL (04:00)
[2024-04-09] MEDS: ACETAMINOPHEN 325 MG TABLET 650 MG PO ×2 (05:34→21:33)
--- NOTE | 2024-04-09 07:30 | OBPPTRN ---
Patient transferred to post room #287via wheelchair. Support person present. Oriented to unit, room, information board, rooming in, admission packet and security measures. Patient verbalizes understanding.
--- NOTE | 2024-04-09 08:15 | PC.NURSE ---
Met with mother to assess needs. Primary RN had mom put baby skin to skin to initiate a feeding. Baby was latched with the nipple shield on the left breast. When baby came off the shield after suckling for a few minutes, there was blood in the shield. Mom was able to remove the shield and her nipple remained more everted. Baby was eager and latched well with a breast sandwich in cross cradle hold. Baby came off a few times and mom was able to demonstrate latching with the breast sandwich. Observed mother latching to the [left] breast in [cross cradle] position. Infant [was] able to maintain an appropriate latch. Mother [declines] nipple pain/discomfort [throughout feeding]. Encouraged mother to keep awake and nursing at the breast for 15 minutes, burping afterwards. Mother taught to observe baby's lips for flanging. We reviewed that if we need to use the shield throughout the day today, we will start pumping. Mother voiced understanding of the education shared, to call for assistance if the does not latch or if there is discomfort with . name/number on communication board. Reported to the Primary RN.?
[2024-04-09] MEDS: MULTIVIT/MIN/PREN/FOL AC/IRON TABLET 1 TAB PO (10:01)
--- NOTE | 2024-04-09 12:20 | PC.NURSE ---
Patient called out for assistance because she tried to feed at 11 and 1130 and baby was too sleepy. Mom says she did apply the nipple shield but it didn't help with getting baby to latch. Baby is a tongue sucker and tends to push the nipple out of her mouth when latching. Mom has baby in football position on the left and we tried for several minutes to obtain a latch but baby was unable. Suggested we could try the nipple shield or try the other breast. We moved to the right breast in football hold and baby was able to latch after a few attempts without the shield. Mom is good at holding her breast and waiting for baby to give a wide gape. Baby did lose the latch and mom was able to latch again independently. Mother declines nipple pain. Baby nursed consistently for 5 minutes and then mom was left to complete the feeding on her own. Encouraged her to call out for help if baby loses the latch and she is unable to latch again on her own or if she needs assistance switching breasts. Mom agrees to call out as needed. Reported to primary RN.
--- NOTE | 2024-04-09 15:15 | PC.NURSE ---
Breast pump provided due to [patient request]. Mom has concerns that baby is BREE positive and that increased feeding volumes will lessen then risk for baby's jaundice. She states that she just fed for 10 minutes. Instructions given on cleaning, care, usage, that there should be no pain, pumping schedule for milk production, collection, and storage of human milk. Patient educated on using the Initiate program on the [employer] pump. Patient was assessed for correct placement, flange size (24mm), to pump in place of (if desired) for adequate milk production every 3 hours (8 times in 24 hours) 1-2 times at night. She has her own pump at home.?Mother voiced understanding of the education shared along with mom/baby guide for additional resource information. Reported to the Primary RN. Patient called out and had pumped 18mls of colostrum. She chose to keep it at the bedside for the next feeding. Bottle nipple provided and pump parts washed for next session.
[2024-04-10 04:43] LABS: Hematocrit 31.5 % (37.0-47.0); Hemoglobin 10.1 g/dL (12.0-15.0)
[2024-04-10 07:40] VITALS: BP 109/79; PULSE 84; RESP 16; TEMP 36.5; O2SAT 98
[2024-04-10] MEDS: ACETAMINOPHEN 325 MG TABLET 650 MG PO ×2 (07:49→16:26)
--- NOTE | 2024-04-10 07:49 | P.PNOB_ITS ---
OB - PN: Subj Subjective Date/time seen: 04/10/24 07:49 Interval history: pp day 1 baby eveline + plan d/c tomorrow bottle feeding no complaints OB - PN: Obj Data Labs 04/10/24 02:56 Labs: Laboratory Results - last 24 hr 04/10/24 02:56 Hgb 10.1 L Hct 31.5 L OB - PN A/P Plan day: 1 Plan: routine care Time Spent With Patient Time: Total time spent is greater than 50% in coordination of care (as documented) at patient's floor/unit and/or counseling patient: Review of Systems 2 Review of Systems: All systems reviewed & are unremarkable except as noted in HPI and below Exam 2 Const: General: cooperative, healthy appearing and comfortable Chest: Chest palpation & inspection: normal inspection of the chest Resp: Effort & Inspection: normal respiratory effort Cardio: Rate: regular rate Skin: General skin exam: normal color Neuro: General: patient oriented x3
[2024-04-10] MEDS: WITCH HAZEL 40 PADS 1 PAD TOPICAL (07:50)
[2024-04-10] MEDS: MULTIVIT/MIN/PREN/FOL AC/IRON TABLET 1 TAB PO (07:50)
[2024-04-10] MEDS: BENZOCAINE 20% AER SPR (*SP) 56 GM CAN 1 SPRAY TOPICAL (07:50)
[2024-04-10] MEDS: IBUPROFEN 600 MG TABLET PO (10:26)
--- NOTE | 2024-04-10 14:12 | WPDANLDPN2 ---
Anes-Prog Note L&D Date/Time: 04/10/24 14:12 Comfortable throughout: labor and delivery Neuraxial method: epidural Epidural/Spinal procedure site: clean & non-tender Neuro status: Neuro function grossly intact. Cardiovascular status: normal Respiratory status: normal Airway patency: baseline Mental status: baseline Post-Op hydration status: normal Vital Signs: Last Vital Signs Temp 36.5 C 04/10/24 07:40 Pulse 84 04/10/24 07:40 Resp 16 04/10/24 07:40 BP 109/79 04/10/24 07:40 Pulse Ox 98 04/10/24 07:40 O2 Del Method Room Air 04/10/24 07:58 Pain score (VAS): 02/15 Post-procedural complaints: none Patient feedback: Patient satisfied with anesthetic care.
--- NOTE | 2024-04-10 14:59 | PC.NURSE ---
Introductions made, handouts provided. Mother states that she will remain exclusively pumping and feeding (with formula supplementation). She denies questions at this time.
[2024-04-11] MEDS: IBUPROFEN 600 MG TABLET PO ×2 (00:20→11:18)
[2024-04-11] MEDS: ACETAMINOPHEN 325 MG TABLET 650 MG PO (00:23)
[2024-04-11 00:30] VITALS: BP 103/70; PULSE 82; RESP 16; TEMP 36.8; O2SAT 98
[2024-04-11 08:00] VITALS: BP 113/67; PULSE 78; RESP 16; TEMP 36.6; O2SAT 97
--- NOTE | 2024-04-11 08:12 | P.PNOB_ITS ---
OB - PN: Subj Subjective Date/time seen: 04/11/24 08:12 Interval history: pp day 1 baby eveline + plan d/c tomorrow bottle feeding no complaints Patient comments: no complaints, pain well controlled and tolerating diet OB - PN: Obj Data Labs 04/10/24 02:56 OB - PN A/P Plan day: 2 Plan: routine care and discharge home Time Spent With Patient Time: Total time spent is greater than 50% in coordination of care (as documented) at patient's floor/unit and/or counseling patient: Exam 2 Const: General: comfortable and no acute distress Resp: Effort & Inspection: normal respiratory effort Auscultation: no rales, no rhonchi and no wheezes Cardio: Rate: regular rate Heart sounds: no click, no murmurs and no rubs GI: GI Palp: Yes Soft to palpation and No Tenderness to palpation present (GI) Auscultation: normal bowel sounds Extrem: General: normal to inspection, no pedal edema and no calf tenderness
--- NOTE | 2024-04-11 08:13 | PM.OBDSVD ---
DS: Admitting Diagnosis Discharge Date April 11, 2024 Admitting Diagnosis Term DS: Discharge Diagnosis Discharge Diagnosis (1) Term delivered: Code(s): O80 - Encounter for full-term uncomplicated delivery Status: Acute OB - DS: Summary OB Procedures : None OB Procedures Intrapartum: Spontaneous Vag Delivery OB Procedures: : None Peripartum Data Laceration Description: Superficial Episiotomy description: None Time Spent with Patient Time attestation: Total time spent providing and/or coordinating discharge services: Discharge Plan Discharge Discharging Clinician: Kyle Nieves Patient Disposition: Home, Self-Care Activity: pelvic rest Diet: regular Patient Instructions: Antibiotic Form Patient Language: Citizen Of [place] Stand Alone Forms: General Discharge Information Follow-up/Referrals: Kyle Nieves MD [Physician] - Discharge Medications: Continued Vitamin 27 mg iron- 800 mcg tablet 1 tablet PO DAILY Date of admission: 04/08/24 04:56 Primary Care Provider: RaniSuraj Admitting Provider: Kyle Nieves Attending physician on admission: Kyle Nieves Condition: Stable
--- NOTE | 2024-04-11 10:15 | PC.NURSE ---
Consulted with mother concerning needs and she shared her ability to independently use her breast pump without pain, she has chosen to only pump and bottle feed baby. Mother was able to pump 50 mls with her last pumping session. Mother is feeding appropriately for growth of and understands stimulating infant to eat if needed. has had appropriate feedings in the last 24 hours meets the outcomes for weight, output, blood sugar and jaundice at this time. Reinforced understanding of milk production, transition of milk, signs of adequate intake, transition of stool, prevention/relief of engorgement, plugged ducts, mastitis, responsive watching for feeding cues, community resources, and when to call a provider using the resource of the feeding sheet along with the mom and baby guide. Mother voiced understanding of the information shared, is confident to continue effectively feed her infant at home, when to call for assistance, denies any additional assistance or education at this time. Reported to the Primary RN.
[2024-04-11] MEDS: MULTIVIT/MIN/PREN/FOL AC/IRON TABLET 1 TAB PO (11:18)
[2024-04-12 09:25] VITALS: BP 114/74; PULSE 79; RESP 18; TEMP 36.8; O2SAT 99
== END 2024-04-11 12:02 | disposition home or self-care (01) | DRG 807 ==
LOC: ANHLDR 04:59 → ANHOB2 04-09 07:46
PROVIDERS: Admitting Provider Obstetrics & Gynecology; PCP Family Medicine; Referring Provider Advanced Practice Midwife; Visit Provider Obstetrics & Gynecology
DX: O69.82X0 Labor and delivery complicated by other cord entanglement, without compression, not applicable or unspecified (principal); Z37.0 Single live birth; Z3A.40 40 weeks gestation of pregnancy
CPT/HCPCS: 36415; 85014; 85018; 85025; 86593; 86703; 86850; 86900; 86901; A9270; G0432; J2590; J2795; J7030; J7120